=== PATIENT | female | born 1945 | race Caucasian/White ===

== ENCOUNTER 2016-11-25 17:45 | Day surgery (SDC) | payer MEDICARE, OTHER ==
[~2016-11-25] VITALS: Ht 157.5 cm; Wt 46.9 kg
[2016-11-25 17:45] VITALS: BP 126/67
[2016-11-25] MEDS ORDERED: ESCI10TA PO (18:17)
--- NOTE | 2016-11-25 18:23 | Consultation-Cardiology ---
HPI-Cardiology Cardiology Consultation Date of Consultation 11/25/16 Date of Admission Indication: chest pain HPI 71 years old lady with history of anxiety, has been in her usual state of health until this afternoon around 2 p.m. she started having chest pain described as pressure-like on the left side of her chest not radiating associated with shortness of breath and feeling fatigued and weak, no diaphoresis, no syncope or near syncopal episode, she waited for about 20-30 minutes then went to the emergency room while she was having active chest pain, EKG did not show any acute changes, she was given sublingual nitroglycerin with appropriate improvement of her chest pain, currently laying down in bed comfortably, denied any similar episodes in the past. Expressed that she felt like belching but she was unable to belch and did not feel better without them. She denied any syncope or near syncopal episode, denied any pedal edema or claudications. No fever or chills. No cough or phlegm. Home Medications & Allergies Allergies: Coded Allergies: No Known Drug Allergies (Unverified , 11/25/16) Home Medication List Reviewed: Yes [id number] Hx Patient Social History Employed/Student: retired Alcohol Use: Denies Use Smoking Status: Never a Smoker Past Medical History anxiety Family Medical History Family History: 19 MOTHER Diabetes mellitus G8 BROTHER Myocardial infarction G8 SISTER FH: breast cancer FH: pancreatic cancer Constitutional: see HPI, No chills, No diaphoresis, No dizziness, No fever, No malaise, weakness, No weight gain, No weight loss, No other EENTM: no symptoms reported, see HPI Respiratory: see HPI, No cough, No dyspnea on exertion, No hemoptysis, No orthopnea, No phlegm, short of breath, No stridor, No wheezing, No other Cardiovascular: see HPI, chest pain, No edema, No Hx of Intervention, No palpitations, No syncope, No vascular heart diseas, No other Gastrointestinal: no symptoms reported, see HPI Genitourinary: no symptoms reported, see HPI, decreased output Musculoskeletal: no symptoms reported, see HPI Skin: no symptoms reported, see HPI Psychiatric/Neurological: No Symptoms Reported, See HPI Reviewed Test Results Reviewed Test Results Lab lab results from [facility] were normal except for potassium level of 3.5 Physical Exam Vital Signs Vital Sign - Last 12Hours 11/25/16 17:45 Temp 98.7 Pulse 64 Resp 16 B/P (MAP) 126/67 Pulse Ox 100 O2 Delivery Room Air Capillary Refill : General Appearance: No Apparent Distress, WD/WN Eyes: Bilateral Eye EOMI, Bilateral Eye Normal Inspection, Bilateral Eye PERRL HEENT: PERRL/EOMI, TMs Normal, Normal ENT Inspection, Pharynx Normal Neck: Full Range of Motion, Normal Inspection, Non Tender, Supple, Carotid Bruit Respiratory: Chest Non Tender, Lungs Clear, Normal Breath Sounds, No Accessory Muscle Use, No Respiratory Distress Cardiovascular: Regular Rate, Rhythm, No Edema, No Gallop, No JVD, No Murmur, Normal Peripheral Pulses Gastrointestinal: Normal Bowel Sounds, No Organomegaly, No Pulsatile Mass, Non Tender, Soft Back: Normal Inspection, No CVA Tenderness, No Vertebral Tenderness Extremity: Normal Capillary Refill, Normal Inspection, Normal Range of Motion, Non Tender, No Calf Tenderness, No Pedal Edema Neurologic/Psychiatric: Alert, Oriented x3, No Motor/Sensory Deficits, Normal Mood/Affect Skin: Normal Color, Warm/Dry Lymphatic: No Adenopathy A/P-Cardiology Admission Diagnosis chest pain Anxiety Family history of heart disease Assessment/Plan Chest pain nonspecific etiology, resembling angina, responded to nitroglycerin associated with shortness of breath. Currently feeling better, EKG is normal, I had a long discussion with her and her family, I will monitor her overnight, monitor EKG and cardiac enzymes in her symptom, consideration for cardiac catheterization in the morning versus planning for stress test on Sunday if cardiac enzymes were negative and she did not have any further episode of chest pain. Meanwhile, I will start her on aspirin and Pepcid in addition to therapeutic dose of Lovenox. Anxiety, has been on Lexapro. Family history of heart disease, brother of myocardial infarction in his mid 80s WILBERT LIMA MD November 25, 2016 18:23
[2016-11-25 18:28] LABS: BASOPHILS % (AUTO) 1 % (0-10); EOSINOPHILS # (AUTO) 0.1 10^3/uL (0.0-0.3); EOSINOPHILS % (AUTO) 2 % (0-10); LYMPHOCYTES # (AUTO) 1.3 X 10^3 (1.0-4.0); LYMPHOCYTES % (AUTO) 25 % (12-44); MEAN CORPUSCULAR HEMOGLOBIN 30 PG (25-34); MEAN CORPUSCULAR HGB CONC 32 G/DL (32-36); MEAN CORPUSCULAR VOLUME 93 FL (80-99); MEAN PLATELET VOLUME 10.6 FL (7.4-10.4); MONOCYTES # (AUTO) 0.3 X 10^3 (0.0-1.0); MONOCYTES % (AUTO) 6 % (0-12); NEUTROPHILS # (AUTO) 3.6 X 10^3 (1.8-7.8); NEUTROPHILS % (AUTO) 67 % (42-75); PLATELET COUNT 206 10^3/uL (130-400); RED BLOOD COUNT 4.42 10^6/uL (4.35-5.85); RED CELL DISTRIBUTION WIDTH 13.6 % (10.0-14.5); WHITE BLOOD COUNT 5.4 10^3/uL (4.3-11.0)
[2016-11-25 18:44] LABS: PROTHROMBIN TIME PATIENT 12.8 SEC (12.2-14.7)
[2016-11-25 18:53] LABS: ALANINE AMINOTRANSFERASE 24 U/L (0-55); ALBUMIN 4.2 G/DL (3.2-4.5); ANION GAP 11 MMOL/L (5-14); ASPARTATE AMINO TRANSFERASE 30 U/L (5-34); BILIRUBIN,TOTAL 0.5 MG/DL (0.1-1.0); BLOOD UREA NITROGEN 15 MG/DL (7-18); BUN/CREATININE RATIO 22; CALCIUM 9.5 MG/DL (8.5-10.1); CARBON DIOXIDE 26 MMOL/L (21-32); CHLORIDE 106 MMOL/L (98-107); CREATININE SERUM 0.69 MG/DL (0.60-1.30); GFR ESTIMATED > 60; GLUCOSE 79 MG/DL (70-105); POTASSIUM 4.4 MMOL/L (3.6-5.0); SODIUM 143 MMOL/L (135-145); TOTAL PROTEIN 6.6 G/DL (6.4-8.2)
[2016-11-25] MEDS ORDERED: NS IV 1000 ML 1,000 ML ONE ×2 (19:42→23:41)
[2016-11-25 20:00] VITALS: BP 141/113
[2016-11-25] MEDS ORDERED: ENOXAPARIN 60 MG/0.6 ML (LOVENOX) SYR ONE (20:12)
[2016-11-25] MEDS ORDERED: NS IV 1000 ML 1,000 ML IV SCH (20:45)
[2016-11-25] MEDS ORDERED: ENOXAPARIN 60 MG/0.6 ML (LOVENOX) SYR SC ONE (20:45)
[2016-11-25] MEDS: FAMOTIDINE 20 MG (PEPCID) TABLET PO SCH (21:17)
[2016-11-25] MEDS ORDERED: meTOprolol 5 MG/5 ML (LOPRESSOR) VIAL ONE (23:15)
[2016-11-25] MEDS ORDERED: meTOprolol 5 MG/5 ML (LOPRESSOR) VIAL IV ONE (23:30)
[2016-11-25] MEDS ORDERED: LIDOCAINE 1% INJ 20 ML (XYLOCAINE) VIAL ONE (23:41)
[2016-11-25] MEDS ORDERED: HEParin (CATH LAB) 2,000 ML IV ONE (23:41)
[2016-11-25] MEDS ORDERED: MIDAZOLAM 5 MG/5 ML (VERSED) VIAL ONE (23:42)
[2016-11-25] MEDS ORDERED: fentaNYL INJECTION 100 MCG/2 ML AMP ONE (23:42)
[2016-11-25] MEDS ORDERED: NITROGLYCERIN DRIP 25 MG/D5W 250 ML IV ONE (23:42)
[2016-11-25] MEDS ORDERED: HEParin 1000 UNIT/ML (10ML VIAL) FOR BOLUS ONE (23:42)
[2016-11-26] VITALS (11 sets, daily range): BP systolic 96–120; BP diastolic 49–88
--- NOTE | 2016-11-26 00:02 | Cardiac Procedure Note-CS/ASA ---
Pre-Procedure Note Pre-Op Procedure Note H&P Reviewed The H&P was reviewed, patient examined and no changes noted. Date H&P Reviewed: November 26, 2016 Time H&P Reviewed: 00:02 Conscious Sedation Pre-Proced Time Reviewed: 00:02 ASA Class: 3 Airway Mallampati Classification: ([place] appropriate class) I. II. III, IV Lungs Heart ASA score ASA 1: a normal healthy patient ASA 2: a patient with a mild systemic disease (mid diabetes, controlled hypertension, obesity x ASA 3: a patient with a severe systemic disease that limits activity (angina , COPD, prior Myocardial infarction) ASA 4: a patient with an incapacitating disease that is a constant threat to life (CHF, renal failure) ASA 5: a moribund patient not expected to survive 24 hrs. (ruptured aneurysm) ASA 6: a declared brain patient whose organs are being harvested. For emergent operations, add the letter E after the classification Grade 3 Sedation Plan: Analgesia, Amnesia, Plan communicated to team members, Discussed options with patient/fam, Discussed risks with patient/fam Note The patient is an appropriate candidate to undergo the planned procedure, sedation, and anesthesia. The patient immediately re-assessed prior to indication. WILBERT LIMA MD November 26, 2016 00:02
[2016-11-26] MEDS ORDERED: NS IV 1000 ML 1,000 ML IV SCH (00:26)
[2016-11-26] MEDS ORDERED: PATIENT MAY USE OWN MEDS, ALL PO SCH (00:30)
[2016-11-26] MEDS ORDERED: meTOprolol TARTRATE 25 MG (LOPRESSOR) TABLET PO ONE (00:30)
[2016-11-26 03:55] LABS: MEAN PLATELET VOLUME 10.7 FL (7.4-10.4); RED CELL DISTRIBUTION WIDTH 13.5 % (10.0-14.5); WHITE BLOOD COUNT 4.8 10^3/uL (4.3-11.0)
[2016-11-26 04:24] LABS: ALANINE AMINOTRANSFERASE 20 U/L (0-55); ALBUMIN 3.5 G/DL (3.2-4.5); ANION GAP 7 MMOL/L (5-14); ASPARTATE AMINO TRANSFERASE 31 U/L (5-34); BILIRUBIN,TOTAL 0.4 MG/DL (0.1-1.0); BLOOD UREA NITROGEN 14 MG/DL (7-18); BUN/CREATININE RATIO 22; CALCIUM 8.5 MG/DL (8.5-10.1); CARBON DIOXIDE 25 MMOL/L (21-32); CHLORIDE 109 MMOL/L (98-107); CHOLESTEROL 171 MG/DL (< 200); CREATININE SERUM 0.64 MG/DL (0.60-1.30); DIRECT LDL 65 MG/DL (1-129); GFR ESTIMATED > 60; GLUCOSE 94 MG/DL (70-105); POTASSIUM 4.5 MMOL/L (3.6-5.0); SODIUM 141 MMOL/L (135-145); TOTAL PROTEIN 5.5 G/DL (6.4-8.2); TRIGLYCERIDES 56 MG/DL (<150); VLDL CHOLESTEROL 11 MG/DL (5-40)
[2016-11-26] MEDS ORDERED: ENOXAPARIN 100 MG/1 ML (LOVENOX) SYR SC SCH (08:00)
[2016-11-26] MEDS: FAMOTIDINE 20 MG (PEPCID) TABLET PO SCH (08:11)
[2016-11-26] MEDS ORDERED: ASPIRIN E.C. 81 MG (ECOTRIN) TAB PO SCH (09:00)
[2016-11-26] MEDS ORDERED: meTOprolol TARTRATE 25 MG (LOPRESSOR) TABLET PO SCH (09:00)
--- NOTE | 2016-11-26 09:29 | History & Physical-Hospitalist ---
HPI History of Present Illness: HPI/Chief Complaint this is a 71-year-old white female who is very very active and has been without any significant medical problems throughout her life. 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 This was associated with shortness of breath but no near syncope diaphoresis or radiation. She presented to the emergency room in [place] with similar complaints. She was given 3 nitroglycerin with resolution of the chest discomfort. she was transferred here for further evaluation by our police captain. The patient has remained pain free since admission however she had nonsustained V. tach last night and a bump in her troponin to 3.4. Dr. Lundberg performed a heart catheter, which did not require any intervention. The patient had been placed on a beta xander and aspirin. At the time my interview she feels great and would like to go home. During the time of my interview, she has no cardiac arrhythmias but a rare PAC and PVC. Source: patient, family Exam Limitations: no limitations Date Seen 11/26/16 Attending Physician Joel Isabel MD PCP Maxx Nolan DO Referring Physician Date of Admission November 25, 2016 at 17:51 Home Medications & Allergies Home Medications Reviewed patient Home Medication Reconciliation Form Allergies Allergies Coded Allergies No Known Drug Allergies (Unverified11/25/16) Past Otzcdfs-Ywwsyr-Kujlok Hx Patient Social History Marrital Status: Employed/Student: retired Alcohol Use: Denies Use Recreational Drug Use: No Smoking Status: Never a Smoker Physical Abuse Screen: No Sexual Abuse: No Recent Foreign Travel: No Contact w/other who traveled: No Recent Hopitalizations: No Recent Infectious Disease Expo: No Seasonal Allergies Seasonal Allergies: No Surgeries HX Surgeries: No Respiratory Hx Respiratory Disorders: No Cardiovascular Hx Cardiovascular Disorders: No Neurological Hx Neurological Disorders: No Genitourinary Hx Genitourinary Disorders: No Gastrointestinal Hx Gastrointestinal Disorders: No Musculoskeletal Hx Musculoskeletal Disorders: No Endocrine Hx Endocrine Disorders: No HEENT HX ENT Disorders: No Cancer Hx Cancer: No Psychosocial Hx Psychiatric Problems: Yes Behavioral Health Disorders: Anxiety, Depression Integumentary HX Skin/Integumentary Disorder: No Blood Transfusions Hx Blood Disorders: No Adverse Reaction to a Blood Tr: No Family Medical History Significant Family History: Heart Disease, Cancer Family Hx: Diabetes mellitus 19 MOTHER FH: breast cancer G8 SISTER FH: pancreatic cancer G8 SISTER Myocardial infarction G8 BROTHER Review of Systems Constitutional: see HPI EENTM: no symptoms reported Respiratory: no symptoms reported Cardiovascular: no symptoms reported, palpitations (rare at night) Gastrointestinal: no symptoms reported Genitourinary: no symptoms reported Musculoskeletal: no symptoms reported Skin: no symptoms reported Psychiatric/Neurological: Anxiety Physical Exam Physical Exam Vital Signs Vital Sign - Last 12Hours 11/25/16 11/25/16 17:45 23:32 Temp 98.7 Pulse 64 Resp 16 B/P (MAP) 126/67 Pulse Ox 100 O2 Delivery Room Air O2 Flow Rate 2.00 Capillary Refill : General Appearance: No Apparent Distress, WD/WN, Anxious Eyes: Bilateral Eye Normal Inspection HEENT: Normal ENT Inspection Neck: Full Range of Motion, Normal Inspection, Non Tender, Supple Respiratory: Chest Non Tender, Lungs Clear, Normal Breath Sounds, No Accessory Muscle Use, No Respiratory Distress Cardiovascular: Regular Rate, Rhythm, No Gallop, No Murmur, Normal Peripheral Pulses Gastrointestinal: Normal Bowel Sounds, No Organomegaly, No Pulsatile Mass, Non Tender, Soft Back: Normal Inspection, No CVA Tenderness, No Vertebral Tenderness Extremity: Normal Capillary Refill, Normal Range of Motion, No Calf Tenderness Neurologic/Psychiatric: Alert, Oriented x3, No Motor/Sensory Deficits, Normal Mood/Affect Skin: Normal Color, Warm/Dry Results Results/Procedures Lab Laboratory Tests 11/25/16 18:20 11/26/16 03:45 Assessment/Plan Admission Diagnosis 1. non-st segment elevation PR- with small vessel disease.-Status post heart catheter without intervention. 2. Nonsustained V. tach-resolving starting on a beta xander-resolving 3. History of anxiety-on Lexapro Plan per Dr. Lundberg-'s help appreciated Copy Copies To 1: MAXX NOLAN DO Clinical Quality Measures DVT/VTE Risk/Contraindication: Risk Factor Score Per Nursin RFS Level Per Nursing on Admit: 2=Moderate JOEL ISABEL MD November 26, 2016 09:29
--- NOTE | 2016-11-26 10:22 | Cardiology Progress Note ---
Subjective Subjective/Events-last exam patient is feeling well. Reporting improvement no further episodes of chest pain, no arrhythmia was noted after she started on beta blockers, groin is healing well. Review of Systems General: No Chills, No Night Sweats, No Fatigue, No Malaise, No Appetite, No Other HEENT: No Head Aches, No Visual Changes, No Eye Pain, No Ear Pain, No Dysphasia , No Sinus Congestion, No Post Nasal Drip, No Sore Throat, No Other Pulmonary: No Dyspnea, No Cough, No Pleuritic Chest Pain, No Other Cardiovascular: No: Chest Pain, Edema, Lt Headedness, Orthopnea, Other, Palpitations, Paroxysmal Noc. Dyspnea Objective-Cardiology Exam Last Set of Vital Signs Vital Signs 11/26/16 11/26/16 04:00 08:21 Temp 97.0 Pulse 76 Resp 14 B/P (MAP) 104/60 Pulse Ox 97 O2 Delivery Room Air O2 Flow Rate 2.00 Capillary Refill : I&O Bad tableGeneral: Alert, Oriented X3, Cooperative HEENT: Atraumatic, PERRLA Neck: Supple, No JVD, No Thyromegaly Lungs: Clear to Auscultation, Normal Air Movement Heart: Regular Rate, Normal S1, Normal S2, No Murmurs Abdomen: Normal Bowel Sounds, Soft, No Tenderness, No Hepatosplenomegaly, No Masses Extremities: No Clubbing, No Cyanosis, No Edema, Normal Pulses, No Tenderness/ Swelling Skin: No Rashes, No Breakdown, No Significant Lesion Neuro: Normal Gait, Normal Speech, Strength at 5/5 X4 Ext, Normal Tone, Sensation Intact Psych/Mental Status: Mental Status NL, Mood NL Results Lab Laboratory Tests 11/25/16 18:20 11/26/16 03:45 A/P-Cardiology Admission Diagnosis chest pain Anxiety Family history of heart disease Assessment/Plan Chest pain nonspecific etiology, resembling angina, heart catheterization showed occlusion of small septal branch not amendable to intervention, medical therapy is recommended Coronary artery disease, cardiac catheterization was carried out yesterday showing occlusion of a small septal branch otherwise small vessel disease. Patient will be starting on aspirin and beta blockers. Frequent PVCs, ventricular bigeminy, short run of nonsustained ventricular tachycardia noted last night on telemetry, emergency cardiac catheterization was carried out, started on low-dose beta blockers and since then no further arrhythmia was noted. Continue on beta blockers and monitor as an outpatient Lipid profile showed LDL of 65, there is no need to initiate statin Anxiety, has been on Lexapro. Family history of heart disease, brother of myocardial infarction in his mid 80s Clinical Quality Measures DVT/VTE Risk/Contraindication: Risk Factor Score Per Nursin RFS Level Per Nursing on Admit: 2=Moderate WILBERT LIMA MD November 26, 2016 10:22
[2016-11-26] MEDS ORDERED: METO-333 PO (10:24)
[2016-11-26] MEDS ORDERED: ASPI-983 PO (10:24)
--- NOTE | 2016-11-26 10:27 | Discharge Inst-Post CATH ---
Discharge Inst-CATH Post Cardiac Cath D/C Inst Follow Up/Plan Appointment with Dr Lundberg's office in 2 weeks CARDIAC CATH DISCHARGE INSTRUCTIONS *Hold Metformin for 48 hours post heart cath. ACTIVITY * Go Home directly and rest. * Limit activity of the leg (or wrist if it was used) for 7 days including aerobics, swimming, jogging, bicycling, etc. * Restrict stair-climbing for 7 days if possible, if not, climb up with your non -cath leg, then bring together on the same step. * Avoid lifting, pushing, pulling or excessive movement of the affected extremity for 7 days. * Customary sexual activity may be resumed after 2 days-use caution not to use a position that strains or causes pain to the affected extremity. * No driving for 24 hours. * NO SMOKING. * Avoid straining for bowel movements for 7 days. * Gentle walking on level ground is allowed. * Returning to work will depend on the type of procedure and the results. Your doctor will discuss this with you. CALL YOUR DOCTOR FOR ANY OF THE FOLLOWING: *If bleeding from the puncture site occurs- Apply gentle pressure to site with clean cloth and call your doctor or EMS. * If a knot or lump forms under the skin, increases in size, or causes pain. * If bruising appears to be worsening or moving further down your leg instead of disappearing. * Temperature above 101 F. CARE OF YOUR GROIN INCISION; * Bruising or purple discoloration of the skin near the puncture site is common. * You may shower only, no bathtub bathing for 5 days. Be careful to avoid slipping as your leg may feel stiff. * If a closure device was used on your femoral artery, please see the attached guide regarding care of the device and your leg. * REMOVE the dressing from your groin the next day after your procedure in the shower. CARE OF YOUR WRIST INCISION; * Bruising or purple discoloration of the skin near the puncture site is common. * You may shower. * DO NOT submerge wrist. * Remove dressing in 24 hours. WILBERT LUNDBERG MD November 26, 2016 10:27
[2016-11-26] MEDS ORDERED: NITR0.4T SL (10:28)
--- NOTE | 2016-11-26 10:28 | Clinic Account Progress/Dx ---
Clinic Account Progress/Dx DIAGNOSIS: Diagnosis anterior chest wall. Coronary artery disease Nonsustained ventricular tachycardia Anxiety WILBERT LIMA MD November 26, 2016 10:28
[2016-11-26] MEDS ORDERED: NITROGLYCERIN SUBLINGUAL 0.4 MG TAB (NITROSTAT) SL PRN (10:30)
--- NOTE | 2016-11-26 23:24 | CARDIAC CATHETERIZATION ---
DATE OF SERVICE: 11/26/2016 CARDIAC CATHETERIZATION REPORT BRIEF HISTORY: The patient is a 71-year-old lady admitted with acute chest pain, had elevated troponin, then she started having frequent premature ventricular contractions, ventricular bigeminy, and short runs of nonsustained ventricular tachycardia. I decided to proceed with emergency cardiac catheterization. PROCEDURE NOTE: After calling the farm laborer team, procedure was explained at length to the patient and her family. All questions were answered. The patient signed the consent. Then, she was brought to the cardiac catheterization laboratory. Local anesthesia applied, conscious sedation achieved using Versed and fentanyl. A 6-[place] sheath was placed in the right femoral artery. Combination of right and left Ajith catheter was used to access the right and left coronary system. Multiple views were obtained. Pigtail catheter was advanced to the left ventricular cavity. Left ventriculogram was done. Pullback LV to aorta was done. The aortic arch angiogram was done. At the end of the procedure, sheath was removed, Mynx device deployed, hemostasis achieved, and manual pressure was applied. TOTAL CONTRAST USED: 74 mL. TOTAL RADIATION DOSE: 82 mGy. FINDINGS: HEMODYNAMICS: LV pressure 112/14, end diastolic pressure of 14, aortic pressure 128/64, mean of 89. No significant gradient across the aortic valve. ANATOMY: 1. The left main coronary artery is fairly short with no obstructive disease. 2. Left anterior descending artery is small in size, tapered down after its trifurcation in the midportion in to smaller artery down to the apex. There is a very small septal branch that is occluded distally getting filled by collaterals. 3. Left circumflex is moderate in size with no obstructive disease. 4. Right coronary artery is moderate in size, no obstructive disease. 5. Left ventriculogram was done in the right anterior oblique position. The left ventricle is normal in size with normal contractility. Estimated ejection fraction is 50%. 6. Aortic arch angiogram appeared to be normal in size, origin of the subclavian artery. The left subclavian artery, left carotid artery, and right innominate artery appeared normal. IN CONCLUSION: 1. Small vessel disease including mid to distal small septal branch that has appeared to be occluded and getting filled by collaterals. The artery is less than 0.5 mL in diameter; otherwise, small coronary artery disease. The LAD tapered down into very small artery at the mid and distal portion. 2. Normal left ventricular size with normal contractility. Estimated ejection fraction 50%. Normal left ventricular end diastolic pressure. 3. Normal aortic arch and great neck vessels. DISCUSSION AND RECOMMENDATION: The patient's elevated troponin is probably due to the occluded septal branch in addition to her ventricular irritability. I will start her on low dose beta xander due to her borderline hypotension and try to titrate it up. In addition, I will continue on aspirin and will consider adding nitroglycerin for chest pain. I will evaluate lipid profile. Job ID: [id number] DocumentID: [id number] Dictated Date: 11/26/2016 00:31:50 [employer] Installer Date: 11/26/2016 13:10:43 Dictated By: WILBERT LIMA MD
== END 2016-11-26 11:05 | disposition home or self-care (01) ==
LOC: CATH 17:45 → ICU 17:45 → UNDOADMIN 17:51 → ICU 17:51 → UNDODISIN 11-26 11:05 → CATH 11-26 11:05
PROVIDERS: ATTEND Internal Medicine
PROC: 4A023N7 Measurement of Cardiac Sampling and Pressure, Left Heart, Percutaneous Approach (ICD-10-PCS; principal; 2016-11-26)
PROC: B2151ZZ Fluoroscopy of Left Heart using Low Osmolar Contrast (ICD-10-PCS; 2016-11-26)
PROC: B2111ZZ Fluoroscopy of Multiple Coronary Arteries using Low Osmolar Contrast (ICD-10-PCS; 2016-11-26)
PROC: B3101ZZ Fluoroscopy of Thoracic Aorta using Low Osmolar Contrast (ICD-10-PCS; 2016-11-26)
DX: I25.10 Atherosclerotic heart disease of native coronary artery without angina pectoris (principal); I47.2 Ventricular tachycardia; I49.3 Ventricular premature depolarization; F41.9 Anxiety disorder, unspecified; R07.89 Other chest pain; Z82.49 Family history of ischemic heart disease and other diseases of the circulatory system; Z79.899 Other long term (current) drug therapy
CPT/HCPCS: 36221; 36415; 80053; 80061; 84484; 85025; 85027; 85610; 85730; 93005; 93458; 99211; G0378

== ENCOUNTER 2016-12-25 14:06 | Outpatient (RCR) | payer MEDICARE, OTHER ==
[~2016-12-25 14:06] MED LIST: ASPI-983 PO; ESCI10TA PO; METO-333 PO; NITR0.4T SL
[2016-12-30] MEDS ORDERED: ALPR0.25 PO (18:05)
== END 2017-03-25 | disposition home or self-care (01) ==
LOC: CARD 14:06
PROVIDERS: ATTEND Physician Assistant
DX: R07.89 Other chest pain (principal); R77.8 Other specified abnormalities of plasma proteins; I47.2 Ventricular tachycardia; I49.3 Ventricular premature depolarization
CPT/HCPCS: 93225; 93226

== ENCOUNTER 2016-12-30 16:05 | Emergency (ER) | payer MEDICARE, OTHER ==
[~2016-12-30] VITALS: Ht 160 cm; Wt 47.6 kg
[2016-12-30] MEDS ORDERED: morphine INJ 10 MG/ML 1ML (SYR OR VIAL) ONE (16:10)
[2016-12-30] MEDS ORDERED: morphine INJ 10 MG/ML 1ML (SYR OR VIAL) IV STA (16:14)
[2016-12-30] MEDS ORDERED: ONDANSETRON 4 MG/2 ML (SDV) Z0FRAN ONE (16:16)
--- NOTE | 2016-12-30 16:23 | ED Chest Pain ---
General Chief Complaint: Chest Pain Stated Complaint: CHEST PAIN History of Present Illness Time seen by provider: 16:10 Initial Comments Evaluation for chest pain. Patient had a cardiac catheterization early November 2016 Dr. Lundberg (report reviewed 50% ejection fraction). Her son reports that she became winded and comfortable after walking at [employer] yesterday evening, she took 3 nitroglycerin between 7 and 8 PM yesterday evening. He told her family that it relieved her symptoms, however she is now stating that it did not completely resolve her symptoms. She did well through the nightand this morning, taking her normal morning medications including a baby aspirin. She Began having chest pain this afternoon. She used nitroglycerin 3 prior to arrival, with no resolution of her symptoms. she currently reports the pain is not the same as when she was having heart problems in early November, she feels as though it's more pressure and anxiety related. She reports when she takes a nitroglycerin and make sure her anxious. She is currently rating her chest pain at 4/10. she did wear a Holter for 3 days earlier this week. The results have not been given to her yet. Timing/Duration: 1 hour Severity/Quality: mild (for over 10) Location: substernal Radiation: no radiation Activities at Onset: none Prior CP/Workup: angina, cardiac cath ASA po STATISTICAL TECHNICIAN: Yes (this morning) NTG SL STATISTICAL TECHNICIAN: Yes (3) Associated Symptoms: denies symptoms, No abdominal pain, No back pain, No diaphoresis, No dizziness, No edema, No fatigue, No fever/chills, No headache, No heartburn, No nausea/vomiting, No rash, No shortness of breath, No swelling/ lump in chest, No syncope, No weakness Allergies and Home Medications Allergies Coded Allergies: No Known Drug Allergies (Unverified , 11/25/16) Home Medications Alprazolam 0.25 Mg Tablet, 0.25 MG PO Q8H PRN for ANXIETY, #12 Ref 0 Prescribed by: DIVYA OVALLES on 12/30/16 1805 Aspirin 81 Mg Tablet.dr, 81 MG PO DAILY, #100 Ref 3 Prescribed by: WILBERT LUNDBERG on 11/26/16 1024 Escitalopram Oxalate 10 Mg Tablet, 10 MG PO DAILY, (Reported) Metoprolol Tartrate 25 Mg Tablet, 12.5 MG PO BID, #60 Ref 3 Prescribed by: WILBERT LUNDBERG on 11/26/16 1024 Nitroglycerin 0.4 Mg Tab.subl, 0.4 MG SL Q5M PRN for CHEST PAIN, #30 Ref 2 Prescribed by: WILBERT LUNDBERG on 11/26/16 1028 Review of Systems Constitutional: no symptoms reported, see HPI EENTM: No Symptoms Reported, See HPI Respiratory: No Symptoms Reported, See HPI Cardiovascular: See HPI, Chest Pain, Palpitations Gastrointestinal: No Symptoms Reported, See HPI Genitourinary: No Symptoms Reported, See HPI Musculoskeletal: no symptoms reported, see HPI Skin: no symptoms reported, see HPI Psychiatric/Neurological: See HPI, Anxiety Endocrine: No Symptoms Reported, See HPI Hematologic/Lymphatic: No Symptoms Reported, See HPI All Other Systems Reviewed Negative Unless Noted: Yes Past Lkyykvz-Xxpyfm-Rgzmsu Hx Patient Social History Alcohol Use: Denies Use Recreational Drug Use: No Smoking Status: Never a Smoker Recent Foreign Travel: No Contact w/Someone Who Travel: No Recent Hopitalizations: No Seasonal Allergies Seasonal Allergies: No Surgeries HX Surgeries: No Respiratory Hx Respiratory Disorders: No Cardiovascular Hx Cardiac Disorders: No Neurological Hx Neurological Disorders: No Genitourinary Hx Genitourinary Disorders: No Gastrointestinal Hx Gastrointestinal Disorders: No Musculoskeletal Hx Musculoskeletal Disorders: No Endocrine Hx Endocrine Disorders: No HEENT HX ENT Disorders: No Cancer Hx Cancer: No Psychosocial Hx Psychiatric Problems: Yes Behavioral Health Disorders: Anxiety, Depression Integumentary HX Skin/Integumentary Disorder: No Blood Transfusions Hx Blood Disorders: No Adverse Reaction to a Blood Tr: No Reviewed Nursing Assessment Reviewed/Agree w Nursing PMH: Yes Family Medical History Significant Family History: Heart Disease, Cancer Family Medial History: Diabetes mellitus 19 MOTHER FH: breast cancer G8 SISTER FH: pancreatic cancer G8 SISTER Myocardial infarction G8 BROTHER Physical Exam Vital Signs Vital Sign - Last 12Hours 12/30/16 16:05 Temp 98.0 Pulse 58 Resp 18 B/P (MAP) 134/74 Pulse Ox 100 O2 Delivery Nasal Cannula O2 Flow Rate 2.00 Capillary Refill : General Appearance: No Apparent Distress, WD/WN HEENT: PERRL/EOMI, TMs Normal, Normal ENT Inspection, Pharynx Normal Neck: Full Range of Motion, Normal Inspection, Non Tender, Supple Respiratory: Chest Non Tender, Lungs Clear, Normal Breath Sounds Cardiovascular: Regular Rate, Rhythm, No Edema, No JVD, No Murmur, Normal Peripheral Pulses (2+) Gastrointestinal: Normal Bowel Sounds, No Organomegaly, No Pulsatile Mass, Non Tender, Soft Extremity: Normal Capillary Refill, Normal Inspection, Normal Range of Motion, Non Tender, No Calf Tenderness, No Pedal Edema Neurologic/Psychiatric: Alert, Oriented x3, No Motor/Sensory Deficits, Normal Mood/Affect Skin: Normal Color, Warm/Dry, No Cyanosis, No Diaphoresis, No Rash Lymphatic: No Adenopathy Progress/Results/Core Measures Results/Orders Lab Results Laboratory Tests Test 12/30/16 16:11 Range/Units White Blood Count 5.3 4.3-11.0 10^3/uL Red Blood Count 4.28 L 4.35-5.85 10^6/uL Hemoglobin 12.8 11.5-16.0 G/DL Hematocrit 40 35-52 % Mean Corpuscular Volume 94 80-99 FL Mean Corpuscular Hemoglobin 30 25-34 PG Mean Corpuscular Hemoglobin Concent 32 32-36 G/DL Red Cell Distribution Width 13.4 10.0-14.5 % Platelet Count 213 130-400 10^3/uL Mean Platelet Volume 11.4 H 7.4-10.4 FL Neutrophils (%) (Auto) 53 42-75 % Lymphocytes (%) (Auto) 34 12-44 % Monocytes (%) (Auto) 9 0-12 % Eosinophils (%) (Auto) 3 0-10 % Basophils (%) (Auto) 1 0-10 % Neutrophils # (Auto) 2.8 1.8-7.8 X 10^3 Lymphocytes # (Auto) 1.8 1.0-4.0 X 10^3 Monocytes # (Auto) 0.5 0.0-1.0 X 10^3 Eosinophils # (Auto) 0.1 0.0-0.3 10^3/uL Basophils # (Auto) 0.0 0.0-0.1 10^3/uL Prothrombin Time 12.6 12.2-14.7 SEC INR Comment 1.0 0.8-1.4 Activated Partial Thromboplast Time 26 24-35 SEC Sodium Level 141 135-145 MMOL/L Potassium Level 4.0 3.6-5.0 MMOL/L Chloride Level 107 98-107 MMOL/L Carbon Dioxide Level 26 21-32 MMOL/L Anion Gap 8 5-14 MMOL/L Blood Urea Nitrogen 14 7-18 MG/DL Creatinine 0.68 0.60-1.30 MG/DL Estimat Glomerular Filtration Rate > 60 BUN/Creatinine Ratio 21 Glucose Level 87 70-105 MG/DL Calcium Level 9.3 8.5-10.1 MG/DL Magnesium Level 2.0 1.8-2.4 MG/DL Total Bilirubin 0.4 0.1-1.0 MG/DL Aspartate Amino Transf (AST/SGOT) 23 5-34 U/L Alanine Aminotransferase (ALT/SGPT) 20 0-55 U/L Alkaline Phosphatase 64 40-136 U/L Myoglobin 28.8 10.0-92.0 NG/ML Troponin I < 0.30 <0.30 NG/ML Total Protein 6.5 6.4-8.2 G/DL Albumin 4.1 3.2-4.5 G/DL My Orders Orders - DIVYA OVALLES APRN Cbc With Automated Diff (12/30/16 16:14) Magnesium (12/30/16 16:14) Chest 1 View, Ap/Pa Only (12/30/16 16:14) Ekg Tracing (12/30/16 16:14) Cardiac Profile 1 (12/30/16 16:14) Comprehensive Metabolic Panel (12/30/16 16:14) Myoglobin Serum (12/30/16 16:14) Protime With Inr (12/30/16 16:14) Partial Thromboplastin Time (12/30/16 16:14) O2 (12/30/16 16:14) Monitor-Rhythm Ecg Trace Only (12/30/16 16:14) Morphine Injection (Morphine Injection (12/30/16 16:14) Saline Lock/Iv-Start (12/30/16 16:14) Ondansetron Injection (Zofran Injectio (12/30/16 16:16) Alprazolam Tablet (Xanax Tablet) (12/30/16 18:15) Medications Given in ED Current Medications Medications Dose Ordered Sig/Khoi Route Start Time Stop Time Status Last Admin Dose Admin Alprazolam 0.125 mg ONCE ONCE PO 12/30/16 18:15 12/30/16 18:17 DC 12/30/16 18:21 0.125 MG Ondansetron HCl 4 mg STK-MED ONCE .ROUTE 12/30/16 16:16 12/30/16 16:20 DC 12/30/16 16:20 4 MG Vital Signs/I&O Vital Sign - Last 12Hours 12/30/16 12/30/16 12/30/16 12/30/16 16:05 16:05 16:15 18:26 Temp 98.0 Pulse 58 65 Resp 18 18 B/P (MAP) 134/74 Pulse Ox 100 98 O2 Delivery Nasal Cannula Nasal Cannula Nasal Cannula O2 Flow Rate 2.00 Progress Note : Time: 16:10 Progress Note Initial evaluation completed cardiac workup started. Morphine 2 mg IV. EKG shows normal sinus rhythm with no concerns. Reviewed EKG with Dr. Dutton, agreed with this assessment plan. 1625 patient reports resolution of her chest pain after getting the morphine however she became nauseated, Zofran 4 mg IV. 1645 patient reports no chest pain at the present time, and that her nausea has improved. Awaiting labs at this time. 1655 all labs are essentially normal. Discussed these results with the patient and her family had a longer discussion with them about anxiety. They report that she is extremely anxious since having a heart catheterization in November. [address] Lundberg by phone, reviewed labs and EKG. He agreed with plan of care to return home and return to emergency department if pain returns. 1745 discussed the plan with the patient and her family, they agree with this treatment plan. She would like to try a Xanax 0.25 mg at this time, she reports that she is mildly anxious at this time. ECG Initial ECG Impression Date: Dec 30, 2016 Initial ECG Impression Time: 16:09 Initial ECG Rate: 58 Initial ECG Rhythm: Normal Sinus Initial ECG Intervals: Normal Initial ECG Intervals OK 152, QRS 84, QT 432, QTc 425. Baden P 77, QRS 0, T 17. Initial ECG Impression: Normal Initial ECG Comparisson: Unchanged Comment Reviewed EKG with Dr. Dutton who agreed with interpretation. Diagnostic Imaging Diagonstic Imaging: Xray Plain Films/CT/US/NM/MRI: chest Comments NAME: [facility]ICHARDSON [facility] REC#: [id number] PT STATUS: REG ER : 1945 PHYSICIAN: DIVYA OVALLES ADMIT DATE: 12/30/16/ER Signed Date of Exam: 12/30/16 CHEST 1 VIEW, AP/PA ONLY INDICATION: Chest pain. EXAMINATION: Single view of the chest was obtained. COMPARISON: No prior examinations are available for comparison. FINDINGS: There is cardiomegaly. Lungs are clear. There is no pleural effusion or pneumothorax. The mediastinum is unremarkable. IMPRESSION: 1. No acute cardiopulmonary abnormality. 2. Cardiomegaly. Dictated by: Dictated on workstation # [id number] Dict: 12/30/16 1624 Trans: 12/30/16 1641 Interpreted by: DIMPLE SANCHEZ Electronically signed by: DIMPLE SANCHEZ 12/30/16 164 Reviewed: Reviewed by Me Departure Impression Impression: Primary Impression: Chest pain Qualified Codes: R07.89 - Other chest pain Additional Impression: Anxiety Disposition: 01 HOME, SELF-CARE Condition: Improved Departure-Patient Inst. Decision time for Depature: 17:45 Referrals: TELLY LEONARD DO (PCP/Family) Primary Care Physician Patient Instructions: Chest Pain (DC) Add. Discharge Instructions: Continue taking aspirin and using nitroglycerin as needed for chest pain. Call Dr. Lundberg's office on Sunday for follow-up appointment. Return to emergency department for chest pain not relieved with nitroglycerin. Limit activity especially outside in the heat. Drink extra water. All discharge instructions reviewed with patient and/or family. Voiced understanding. Scripts Alprazolam (Xanax) 0.25 Mg Tablet 0.25 MG PO Q8H Y for ANXIETY, #12 TAB 0 Refills Prov: DIVYA OVALLES 12/30/16 Copy Copies To 1: TELLY LEONARD DO Copies To 2: WILBERT LUNDBERG MD, AMY ARNP Dec 30, 2016 16:23
--- NOTE | 2016-12-30 16:36 | Diagnostic Imaging Report ---
INDICATION: Chest pain. EXAMINATION: Single view of the chest was obtained. COMPARISON: No prior examinations are available for comparison. FINDINGS: There is cardiomegaly. Lungs are clear. There is no pleural effusion or pneumothorax. The mediastinum is unremarkable. IMPRESSION: 1. No acute cardiopulmonary abnormality. 2. Cardiomegaly. Dictated by: Dictated on workstation # [id number]
[2016-12-30 16:47] LABS: ALANINE AMINOTRANSFERASE 20 U/L (0-55); ALBUMIN 4.1 G/DL (3.2-4.5); ANION GAP 8 MMOL/L (5-14); ASPARTATE AMINO TRANSFERASE 23 U/L (5-34); BILIRUBIN,TOTAL 0.4 MG/DL (0.1-1.0); BLOOD UREA NITROGEN 14 MG/DL (7-18); BUN/CREATININE RATIO 21; CALCIUM 9.3 MG/DL (8.5-10.1); CARBON DIOXIDE 26 MMOL/L (21-32); CHLORIDE 107 MMOL/L (98-107); CREATININE SERUM 0.68 MG/DL (0.60-1.30); GFR ESTIMATED > 60; GLUCOSE 87 MG/DL (70-105); SODIUM 141 MMOL/L (135-145); TOTAL PROTEIN 6.5 G/DL (6.4-8.2)
[2016-12-30 16:56] LABS: MYOGLOBIN SERUM 28.8 NG/ML (10.0-92.0)
[2016-12-30 17:00] LABS: PROTHROMBIN TIME PATIENT 12.6 SEC (12.2-14.7)
[2016-12-30 17:16] LABS: BASOPHILS % (AUTO) 1 % (0-10); EOSINOPHILS # (AUTO) 0.1 10^3/uL (0.0-0.3); EOSINOPHILS % (AUTO) 3 % (0-10); LYMPHOCYTES # (AUTO) 1.8 X 10^3 (1.0-4.0); LYMPHOCYTES % (AUTO) 34 % (12-44); MEAN CORPUSCULAR HEMOGLOBIN 30 PG (25-34); MEAN CORPUSCULAR HGB CONC 32 G/DL (32-36); MEAN CORPUSCULAR VOLUME 94 FL (80-99); MEAN PLATELET VOLUME 11.4 FL (7.4-10.4); MONOCYTES # (AUTO) 0.5 X 10^3 (0.0-1.0); MONOCYTES % (AUTO) 9 % (0-12); NEUTROPHILS # (AUTO) 2.8 X 10^3 (1.8-7.8); NEUTROPHILS % (AUTO) 53 % (42-75); PLATELET COUNT 213 10^3/uL (130-400); RED BLOOD COUNT 4.28 10^6/uL (4.35-5.85); RED CELL DISTRIBUTION WIDTH 13.4 % (10.0-14.5); WHITE BLOOD COUNT 5.3 10^3/uL (4.3-11.0)
[2016-12-30] MEDS ORDERED: ALPR0.25 PO (18:05)
[2016-12-30] MEDS ORDERED: ALPRAZolam 0.25 MG (XANAX) TAB PO ONE (18:15)
[2016-12-30 18:26] VITALS: BP 131/64
== END 2016-12-30 18:26 | disposition home or self-care (01) ==
LOC: EDUNIT# 16:05 → ER 16:07
DX: R07.9 Chest pain, unspecified (principal); F41.9 Anxiety disorder, unspecified; F32.9 Major depressive disorder, single episode, unspecified; Z79.82 Long term (current) use of aspirin
CPT/HCPCS: 36415; 71010; 80053; 83735; 83874; 84484; 85025; 85610; 85730; 93005; 93041

== ENCOUNTER → 2018-04-30 | Outpatient (CLI) | payer MEDICARE, OTHER ==
[~2018-04-30] MED LIST changes: +ALPR0.25 PO
== END ==
LOC: CARD 10:46
PROVIDERS: ATTEND Physician Assistant
DX: I10 Essential (primary) hypertension (principal); I25.10 Atherosclerotic heart disease of native coronary artery without angina pectoris; Z82.49 Family history of ischemic heart disease and other diseases of the circulatory system; I47.2 Ventricular tachycardia; I49.3 Ventricular premature depolarization; I08.3 Combined rheumatic disorders of mitral, aortic and tricuspid valves
CPT/HCPCS: 93306

== ENCOUNTER 2018-10-07 08:58 | Outpatient (CLI) | payer MEDICARE, OTHER ==
[~2018-10-07] VITALS: Ht 160 cm; Wt 47.8 kg
[2018-10-07] MEDS ORDERED: LACT1CAP40 PO (15:12)
[2018-10-07] MEDS ORDERED: PSYL1CAP3 PO (15:12)
[2018-10-07] MEDS ORDERED: RANO500T3 PO (15:12)
[2018-10-07] MEDS ORDERED: METO-333 PO (15:12)
[2018-10-07] MEDS ORDERED: OMG1KC PO (15:12)
[2018-10-07] MEDS ORDERED: SERT25TA5 PO (15:12)
[2018-10-07] MEDS ORDERED: MULT-351 PO (15:12)
[2018-10-07] MEDS ORDERED: CETI10TA17 PO (15:12)
== END 2018-10-07 15:32 | disposition home or self-care (01) ==
LOC: PREOP 08:58
PROVIDERS: ATTEND Otolaryngology Otolaryngology/Facial Plastic Surgery
DX: Z01.818 Encounter for other preprocedural examination (principal)

== ENCOUNTER 2018-10-10 06:29 | Day surgery (SDC) | payer MEDICARE, OTHER ==
[~2018-10-10] VITALS: Ht 160 cm; Wt 47.8 kg
[~2018-10-10 06:29] MED LIST changes: +CETI10TA17 PO; +LACT1CAP40 PO; +MULT-351 PO; +OMG1KC PO; +PSYL1CAP3 PO; +RANO500T3 PO; +SERT25TA5 PO
[2018-10-10] MEDS ORDERED: LACTATED RINGERS 1,000 ML IV PRN (06:40)
[2018-10-10 07:02] LABS: BASOPHILS % (AUTO) 1 % (0-10); EOSINOPHILS # (AUTO) 0.1 10^3/uL (0.0-0.3); EOSINOPHILS % (AUTO) 2 % (0-10); HEMATOCRIT 42 % (35-52); HEMOGLOBIN 13.6 G/DL (11.5-16.0); LYMPHOCYTES # (AUTO) 1.2 X 10^3 (1.0-4.0); LYMPHOCYTES % (AUTO) 28 % (12-44); MEAN CORPUSCULAR HEMOGLOBIN 30 PG (25-34); MEAN CORPUSCULAR HGB CONC 32 G/DL (32-36); MEAN CORPUSCULAR VOLUME 93 FL (80-99); MEAN PLATELET VOLUME 10.5 FL (7.4-10.4); MONOCYTES # (AUTO) 0.4 X 10^3 (0.0-1.0); MONOCYTES % (AUTO) 10 % (0-12); NEUTROPHILS # (AUTO) 2.6 X 10^3 (1.8-7.8); NEUTROPHILS % (AUTO) 60 % (42-75); PLATELET COUNT 224 10^3/uL (130-400); WHITE BLOOD COUNT 4.3 10^3/uL (4.3-11.0)
--- NOTE | 2018-10-10 07:04 | Progress Note-Pre Operative ---
Pre-Operative Progress Note H&P Reviewed The H&P was reviewed, patient examined and no changes noted. Date Seen by Provider: Oct 10, 2018 Time Seen by Provider: 07:00 Date H&P Reviewed: Oct 10, 2018 Time H&P Reviewed: 07:00 Pre-Operative Diagnosis: Right SHANE JONELLE TRENT MD Oct 10, 2018 07:04
[2018-10-10 07:10] VITALS: BP 132/69
[2018-10-10 07:18] LABS: BUN/CREATININE RATIO 22; CALCIUM 9.4 MG/DL (8.5-10.1); CARBON DIOXIDE 24 MMOL/L (21-32); CHLORIDE 108 MMOL/L (98-107); CREATININE SERUM 0.78 MG/DL (0.60-1.30); GFR ESTIMATED > 60; GLUCOSE 90 MG/DL (70-105); POTASSIUM 4.3 MMOL/L (3.6-5.0); SODIUM 144 MMOL/L (135-145)
[2018-10-10] MEDS ORDERED: proPOfol 200 MG/20 ML (DIPRIVAN) VIAL IV ONE (07:56)
[2018-10-10] MEDS ORDERED: SEVOFLURANE (ULTANE) 15 ML INHAL SOLN ONE (07:56)
[2018-10-10] MEDS ORDERED: LIDOCAINE PF 2% 5 ML (XYLOCAINE) VIAL ONE (07:56)
[2018-10-10] MEDS ORDERED: DEXAMETHASONE 10 MG/ML (DECADRON) 1 ML VIAL ONE (07:57)
[2018-10-10] MEDS ORDERED: fentaNYL INJECTION 100 MCG/2 ML AMP ONE (07:57)
[2018-10-10] MEDS ORDERED: MIDAZOLAM 2 MG/2 ML (VERSED) VIAL ONE (07:57)
[2018-10-10] MEDS ORDERED: ONDANSETRON 4 MG/2 ML (SDV) Z0FRAN ONE (07:57)
--- NOTE | 2018-10-10 08:40 | Progress Note-Post Operative ---
Post-Operative Progess Note Surgeon (s)/Membership Sales Advisor (s) Surgeon JONELLE TRENT MD Membership Sales Advisor n/a Pre-Operative Diagnosis Right SHANE Post-Operative Diagnosis same Post-Op Procedure Note Date of Procedure: Oct 10, 2018 Name of Procedure Performed: Right Myringotomy with T-Tube Description & Findings Description and Findings: n/a Anesthesia Type mask Estimated Blood Loss minimal Packing none. Specimen(s) collected/removed none JONELLE TRENT MD Oct 10, 2018 08:40
[2018-10-10] MEDS ORDERED: APAP 325 MG/10.15 ML LIQ (TYLENOL) UDC PO PRN (08:45)
[2018-10-10] MEDS ORDERED: morphine INJ 10 MG/ML 1ML (SYR OR VIAL) IVP ONE (09:00)
[2018-10-10] MEDS ORDERED: ONDANSETRON 4 MG/2 ML (SDV) Z0FRAN IVP PRN (09:00)
[2018-10-10 09:25] VITALS: BP 137/69
[2018-10-10] MEDS ORDERED: GENT5DRO30 OP (09:39)
[2018-10-10 09:55] VITALS: BP 133/66
[2018-10-10 10:05] VITALS: BP 133/66
--- NOTE | 2018-10-10 14:14 | Anesthesia-General Post-Op ---
General Patient Condition Mental Status/LOC: Same as Preop Cardiovascular: Satisfactory Nausea/Vomiting: Absent Respiratory: Satisfactory Pain: Controlled Complications: Absent Post Op Complications Complications None Follow Up Care/Instructions Patient Instructions None needed. Anesthesia/Patient Condition Patient Condition Patient is doing well, no complaints, stable vital signs, no apparent adverse anesthesia problems. No complications reported per nursing. AL LARKIN CRNA Oct 10, 2018 14:14
== END 2018-10-10 10:05 | disposition home or self-care (01) ==
LOC: SDC 06:29
PROVIDERS: ATTEND Otolaryngology Otolaryngology/Facial Plastic Surgery
DX: H65.21 Chronic serous otitis media, right ear (principal); I25.119 Atherosclerotic heart disease of native coronary artery with unspecified angina pectoris; I10 Essential (primary) hypertension; F41.9 Anxiety disorder, unspecified; F32.9 Major depressive disorder, single episode, unspecified; Z86.73 Personal history of transient ischemic attack (TIA), and cerebral infarction without residual deficits; Z79.82 Long term (current) use of aspirin; Z79.899 Other long term (current) drug therapy
CPT/HCPCS: 36415; 80048; 85025; 87081; 93005

== ENCOUNTER → 2019-06-04 | Outpatient (CLI) | payer MEDICARE, OTHER ==
[~2019-06-04] VITALS: Ht 157 cm; Wt 48.0 kg
[~2019-06-04] MED LIST changes: +CATHETER FLUSH 10 ML SYR IV PRN; +GENT5DRO30 OP; +REGADENOSON 0.4 MG/5 ML SYR (LEXISCAN) IV ONE
--- NOTE | 2019-06-04 15:51 | STRESS TEST ---
DATE OF SERVICE: 06/04/2019 LEXISCAN MYOVIEW STRESS TEST REPORT REFERRING PHYSICIAN: Maxx Nolan DO Baseline heart rate is 63. Baseline blood pressure 164/83. Baseline EKG is sinus rhythm with occasional PVCs. In summary, the patient was injected with 10.58 mCi of technetium-99 Myoview and the resting images were obtained. Then, the patient received 0.4 mg of Lexiscan followed by 29.2 mCi of technetium-99 Myoview. Throughout the test, there were no EKG changes. The resting and stress images were reviewed and compared in the short axis, horizontal long axis, and vertical long axis views. Review of the images showed decreased uptake at the base of the inferior wall and inferoseptum with no significant reversibility. SSS is 4, SDS 1, TID value 1.11. On the gated images, the left ventricle appeared to be in normal size with normal contractility. Calculated ejection fraction 59%. CONCLUSION: 1. The patient tolerated Lexiscan well. 2. No significant ischemia or infarction on SPECT images. 3. Normal left ventricular size with normal contractility. Calculated ejection fraction 59%. Job ID: [id number] DocumentID: [id number] Dictated Date: 06/04/2019 15:43:14 Facility Designer Date: 06/04/2019 15:50:57 Dictated By: WILBERT LIMA MD
== END ==
LOC: CARD 10:54
PROVIDERS: ATTEND Internal Medicine Cardiovascular Disease
DX: I25.10 Atherosclerotic heart disease of native coronary artery without angina pectoris (principal); I10 Essential (primary) hypertension; E78.2 Mixed hyperlipidemia; I47.2 Ventricular tachycardia
CPT/HCPCS: 78452; 93017

== ENCOUNTER 2019-09-04 22:09 | Inpatient (IN) | payer MEDICARE, OTHER ==
[~2019-09-04] VITALS: Ht 157 cm; Wt 98.6 kg
[~2019-09-04 22:09] MED LIST changes: -CATHETER FLUSH 10 ML SYR IV PRN; -REGADENOSON 0.4 MG/5 ML SYR (LEXISCAN) IV ONE
[2019-09-04 23:30] VITALS: BP 152/71
--- NOTE | 2019-09-04 23:48 | NUR ---
JANIE NOTIFIED OF CONSULT. ORDERS FOR LOVENOX
[2019-09-05] VITALS (17 sets, daily range): BP systolic 115–172; BP diastolic 69–81
[2019-09-05] MEDS ORDERED: ENOXAPARIN 40 MG/0.4 ML (LOVENOX) SYR ONE (00:20)
[2019-09-05] MEDS ORDERED: ACETAMINOPHEN 325 MG TABLET ONE (00:20)
[2019-09-05] MEDS ORDERED: ALPRAZolam 0.25 MG (XANAX) TAB ONE (00:21)
[2019-09-05] MEDS: ACETAMINOPHEN 325 MG TABLET PO PRN ×2 (00:30→13:55)
[2019-09-05] MEDS ORDERED: ENOXAPARIN 40 MG/0.4 ML (LOVENOX) SYR SC SCH (00:30)
[2019-09-05] MEDS ORDERED: ALPRAZolam 0.25 MG (XANAX) TAB PO PRN (00:30)
[2019-09-05 04:17] LABS: BASOPHILS % (AUTO) 1 % (0-10); EOSINOPHILS # (AUTO) 0.2 10^3/uL (0.0-0.3); EOSINOPHILS % (AUTO) 5 % (0-10); HEMATOCRIT 40 % (35-52); HEMOGLOBIN 12.7 G/DL (11.5-16.0); LYMPHOCYTES # (AUTO) 1.3 X 10^3 (1.0-4.0); LYMPHOCYTES % (AUTO) 32 % (12-44); MEAN CORPUSCULAR HEMOGLOBIN 30 PG (25-34); MEAN CORPUSCULAR HGB CONC 32 G/DL (32-36); MEAN CORPUSCULAR VOLUME 93 FL (80-99); MEAN PLATELET VOLUME 10.3 FL (7.4-10.4); MONOCYTES # (AUTO) 0.4 X 10^3 (0.0-1.0); MONOCYTES % (AUTO) 10 % (0-12); NEUTROPHILS # (AUTO) 2.1 X 10^3 (1.8-7.8); NEUTROPHILS % (AUTO) 53 % (42-75); PLATELET COUNT 242 10^3/uL (130-400); RED CELL DISTRIBUTION WIDTH 14.1 % (10.0-14.5); WHITE BLOOD COUNT 4.1 10^3/uL (4.3-11.0)
[2019-09-05 04:50] LABS: CHLORIDE 109 MMOL/L (98-107); POTASSIUM 3.6 MMOL/L (3.6-5.0); SODIUM 143 MMOL/L (135-145)
[2019-09-05 04:51] LABS: ALANINE AMINOTRANSFERASE 13 U/L (0-55); ALBUMIN 3.6 GM/DL (3.2-4.5); ALKALINE PHOSPHATASE 62 U/L (40-136); BILIRUBIN,TOTAL 0.5 MG/DL (0.1-1.0); BUN/CREATININE RATIO 16; CALCIUM 8.6 MG/DL (8.5-10.1); CARBON DIOXIDE 25 MMOL/L (21-32); CREATININE SERUM 0.67 MG/DL (0.60-1.30); GFR ESTIMATED > 60; GLUCOSE 74 MG/DL (70-105)
--- NOTE | 2019-09-05 07:23 | Diagnostic Imaging Report ---
CHEST 1 VIEW, AP/PA ONLY Indication: Unstable angina Comparison: 12/30/2016 Findings: Stable cardiomegaly. Visualized lungs are clear. Posterior lower lobes are poorly evaluated by portable radiography. No pleural effusion or pneumothorax. Impression: 1. Stable cardiomegaly without acute process by radiography. Dictated by: Dictated on workstation # [id number]
[2019-09-05] MEDS ORDERED: NS IV 1000 ML 1,000 ML IV SCH ×2 (09:00→10:34)
[2019-09-05] MEDS ORDERED: SERTRALINE 50 MG (ZOLOFT) TABLET PO SCH (09:00)
[2019-09-05] MEDS ORDERED: ASPIRIN E.C. 81 MG (ECOTRIN) TAB PO SCH (09:00)
--- NOTE | 2019-09-05 09:02 | Consultation-Cardiology ---
HPI-Cardiology Cardiology Consultation Date of Consultation 09/05/19 Date of Admission Time Seen by Provider: 09:00 Indication: Chest pain HPI 74-year-old lady with history of coronary artery disease non-ST elevation myocardial infarction in 2017, started to have active chest pain around 3 p.m. yesterday, did not respond to nitroglycerin, her medication was , came into the emergency room and received nitroglycerin and aspirin, reported improvement but not full resolution of the chest pain continued to have mild chest discomfort that was persistent. Had elevation in troponin, continue to have active chest pain on my evaluation this morning reported mild chest discomfort, no palpitation, no shortness of breath, no syncope, no dizziness. Home Medications & Allergies Allergies: Coded Allergies: No Known Drug Allergies (Unverified , 10/07/18) Home Medication List Reviewed: Yes TDJ-Tjpzga-Onlhde Hx Patient Social History Marital Status: Employed/Student: retired [employer] Smoke Exposure: No Recent Foreign Travel: No Recent Infectious Disease Expo: No Recent Hopitalizations: No Immunizations Up To Date Date of Influenza Vaccine: Apr 22, 2019 Past Medical History Discussed below Family Medical History Significant Family History: Heart Disease, Cancer Family History: Diabetes mellitus 19 MOTHER FH: breast cancer G8 SISTER FH: pancreatic cancer G8 SISTER Myocardial infarction G8 BROTHER Review of Systems-General Review of Systems Constitutional: no symptoms reported, see HPI EENTM: see HPI, no symptoms reported Respiratory: see HPI; No cough, No dyspnea on exertion, No hemoptysis, No orthopnea, No phlegm, No short of breath, No stridor, No wheezing, No other Cardiovascular: see HPI, chest pain; No edema, No Hx of Intervention, No palpitations, No syncope, No vascular heart diseas, No other Gastrointestinal: no symptoms reported, see HPI Genitourinary: no symptoms reported, see HPI Musculoskeletal: no symptoms reported, see HPI Skin: no symptoms reported, see HPI Psychiatric/Neurological: See HPI, Anxiety Reviewed Test Results Reviewed Test Results Lab Laboratory Tests Test 09/05/19 03:53 Range/Units White Blood Count 4.1 L 4.3-11.0 10^3/uL Red Blood Count 4.27 L 4.35-5.85 10^6/uL Hemoglobin 12.7 11.5-16.0 G/DL Hematocrit 40 35-52 % Mean Corpuscular Volume 93 80-99 FL Mean Corpuscular Hemoglobin 30 25-34 PG Mean Corpuscular Hemoglobin Concent 32 32-36 G/DL Red Cell Distribution Width 14.1 10.0-14.5 % Platelet Count 242 130-400 10^3/uL Mean Platelet Volume 10.3 7.4-10.4 FL Neutrophils (%) (Auto) 53 42-75 % Lymphocytes (%) (Auto) 32 12-44 % Monocytes (%) (Auto) 10 0-12 % Eosinophils (%) (Auto) 5 0-10 % Basophils (%) (Auto) 1 0-10 % Neutrophils # (Auto) 2.1 1.8-7.8 X 10^3 Lymphocytes # (Auto) 1.3 1.0-4.0 X 10^3 Monocytes # (Auto) 0.4 0.0-1.0 X 10^3 Eosinophils # (Auto) 0.2 0.0-0.3 10^3/uL Basophils # (Auto) 0.0 0.0-0.1 10^3/uL Sodium Level 143 135-145 MMOL/L Potassium Level 3.6 3.6-5.0 MMOL/L Chloride Level 109 H 98-107 MMOL/L Carbon Dioxide Level 25 21-32 MMOL/L Anion Gap 9 5-14 MMOL/L Blood Urea Nitrogen 11 7-18 MG/DL Creatinine 0.67 0.60-1.30 MG/DL Estimat Glomerular Filtration Rate > 60 BUN/Creatinine Ratio 16 Glucose Level 74 70-105 MG/DL Calcium Level 8.6 8.5-10.1 MG/DL Corrected Calcium 8.9 8.5-10.1 MG/DL Total Bilirubin 0.5 0.1-1.0 MG/DL Aspartate Amino Transf (AST/SGOT) 25 5-34 U/L Alanine Aminotransferase (ALT/SGPT) 13 0-55 U/L Alkaline Phosphatase 62 40-136 U/L Troponin I 2.221 *H <0.028 NG/ML Total Protein 6.0 L 6.4-8.2 GM/DL Albumin 3.6 3.2-4.5 GM/DL Triglycerides Level 66 <150 MG/DL Cholesterol Level 171 < 200 MG/DL LDL Cholesterol Direct 70 1-129 MG/DL VLDL Cholesterol 13 5-40 MG/DL HDL Cholesterol 86 H 40-60 MG/DL Physical Exam Physical Exam Vital Signs Vital Signs - First Documented 09/04/19 23:30 Temp 36.3 Pulse 69 Resp 18 B/P (MAP) 152/71 (98) Pulse Ox 96 O2 Delivery Room Air Capillary Refill : Height, Weight, BMI Height: 5'3.00" Weight: 105lbs. 6.4oz. 47.791663pr; 18.01 BMI Method:Stated General Appearance: No Apparent Distress, WD/WN Eyes: Bilateral Eye Normal Inspection, Bilateral Eye PERRL, Bilateral Eye EOMI HEENT: PERRL/EOMI, TMs Normal, Normal ENT Inspection, Pharynx Normal, Moist Mucous Membranes Neck: Full Range of Motion, Normal Inspection, Non Tender, Supple, Carotid Bruit Respiratory: Chest Non Tender, Normal Breath Sounds, No Accessory Muscle Use, No Respiratory Distress Cardiovascular: Regular Rate, Rhythm, No Edema, No Gallop, No JVD, No Murmur, Normal Peripheral Pulses Gastrointestinal: Normal Bowel Sounds, No Organomegaly, No Pulsatile Mass, Non Tender, Soft Back: Normal Inspection, No CVA Tenderness, No Vertebral Tenderness Extremity: Normal Capillary Refill, Normal Inspection, Normal Range of Motion, Non Tender, No Calf Tenderness, No Pedal Edema Neurologic/Psychiatric: Alert, Oriented x3, No Motor/Sensory Deficits, Normal Mood/Affect Skin: Normal Color, Warm/Dry Lymphatic: No Adenopathy A/P-Cardiology Admission Diagnosis Non-ST elevation myocardial infarction Coronary artery disease Nonsustained ventricular tachycardia Hyperlipidemia Assessment/Plan Non-ST elevation myocardial infarction, elevated troponin, still having active chest pain, planning to proceed with cardiac catheterization possible PTCA. Next History of chest pain resembling angina, had an acute episode yesterday and still having persistent chest pain. Coronary artery [id number] elevation myocardial infarction on November 26, 2016. Underwent emergent cardiac catheterization revealing small vessel disease in the mid to distal small septal branch that has appeared to be occluded, getting filled by collaterals. Otherwise, small coronary artery disease. LAD tapered down into very small artery at the mid and distal portion. EF 50 percent, planning for cardiac catheterization today Ventricular irritability while the hospital with PVCs, ventricular bigeminy, short episodes of nonsustained ventricular tachycardia. Restart home medication monitor Echocardiogram done in April 2018 showing normal left ventricular size and ejection fraction 55-65 percent, [id number] mitral regurgitation, moderate aortic regurgitation, moderate tricuspid regurgitation, PA pressure 45 mmHg. Continue to monitor Anxiety, maintained on Lexapro, recently started on Xanax. Family history of coronary artery disease, brother from myocardial infa rction in his mid 80s Nonobstructive carotid artery stenosis per carotid duplex done March 2018, I will evaluate carotid ultrasound Hyperlipidemia, lipid profile done in November 2018 showing total cholesterol 195, triglyceride 96, HDL 79, LDL 97, continue to monitor Clinical Quality Measures DVT/VTE Risk/Contraindication: Risk Factor Score Per Nursin RFS Level Per Nursing on Admit: 2=Moderate WILBERT LIMA MD Sep 05, 2019 09:02
--- NOTE | 2019-09-05 09:03 | Cardiac Procedure Note-CS/ASA ---
Pre-Procedure Note Pre-Op Procedure Note H&P Reviewed The H&P was reviewed, patient examined and no changes noted. Date H&P Reviewed: Sep 05, 2019 Time H&P Reviewed: 09:02 Conscious Sedation Pre-Proced Time 09:02 ASA Score 3 For ASA 3 and 4: Consider anesthesia and medical clearance. Also, for patients with a history of failed moderate sedation consider anesthesia. Airway Lungs Heart ASA score ASA 1: a normal healthy patient ASA 2: a patient with a mild systemic disease (mid diabetes, controlled hypertension, obesity x ASA 3: a patient with a severe systemic disease that limits activity (angina, COPD, prior Myocardial infarction) ASA 4: a patient with an incapacitating disease that is a constant threat to life (CHF, renal failure) ASA 5: a moribund patient not expected to survive 24 hrs. (ruptured aneurysm) ASA 6: a declared brain- patient whose organs are being harvested. For emergent operations, add the letter E after the classification Mallampati Classification Grade 3 Sedation Plan Analgesia, Amnesia, Plan communicated to team members, Discussed options with patient/fam, Discussed risks with patient/fam The patient is an appropriate candidate to undergo the planned procedure, sedation, and anesthesia. The patient immediately re-assessed prior to indication. WILBERT LIMA MD Sep 05, 2019 09:03
[2019-09-05] MEDS ORDERED: LIDOCAINE 1% INJ 20 ML 20 ML VIAL ONE (09:23)
[2019-09-05] MEDS ORDERED: MIDAZOLAM 5 MG/5 ML (VERSED) VIAL ONE (09:23)
[2019-09-05] MEDS ORDERED: fentaNYL INJECTION 100 MCG/2 ML AMP ONE (09:24)
[2019-09-05] MEDS ORDERED: NS IV 1000 ML 1,000 ML ONE (09:24)
--- NOTE | 2019-09-05 10:14 | History & Physical-Hospitalist ---
[facility] 09/05/19 1014: History of Present Illness HPI/Chief Complaint CC: chest tightness and pain HPI: Ms. Lama is a 74 year old WF that presents with chest tightness and pain. She stated that the pain began at about 1500 yesterday, she thought it was a episode of 'indigestion' because she previously had eaten and drank coffee relatively fast. After a while she became concerned that it was her heart and took 3 tablets of nitroglycerin within a total span of 15 minutes. She stated that this didn't help the pain, realized that the nitro was and proceeded to call her son to take her to the ER. She denies any radiation of the chest pain, SOB, diaphoresis or tremors. Upon arrival she was given 4 aspirin, 3 more tablet of nitro, and Ativan for anxiety. She rated the pain initally at 7/10 upon arrival, after the medicine was reduced to 5/10, but currently has experienced consistent discomfort. She does have a history of prior HI, but denies HTN, DM, HLP. Source: patient, family Date Seen 09/05/19 Time Seen by a Provider: 10:07 Attending Physician Hanh Isabel MD PCP Maxx Nolan DO Referring Physician Date of Admission Sep 04, 2019 at 23:14 Home Medications & Allergies Home Medications Reviewed patient Home Medication Reconciliation performed by pharmacy medication reconciliations metallurgical or materials technician and/or nursing. Patients Allergies have been reviewed. Allergies Allergies Coded Allergies No Known Drug Allergies (Unverified10/07/18) Past Iaqmqzw-Xhcvnp-Jvsyml Hx Patient Social History Marrital Status: Number of Children: 3 Number of living children: 3 Employed/Student: retired Alcohol Use: Rarely Uses Alcohol Beverage of Choice: Wine Recreational Drug Use: No Smoking Status: Never a Smoker 2nd Hand Smoke Exposure: No Recent Foreign Travel: No Contact w/other who traveled: No Recent Hopitalizations: No Recent Infectious Disease Expo: No Immunizations Up To Date Tetanus Booster (TDap): Unknown Date of Influenza Vaccine: Apr 22, 2019 Seasonal Allergies Seasonal Allergies: Yes Past Medical History Respiratory: Pneumonia (15 years ago ) Currently Using CPAP: No Currently Using BIPAP: No Cardiac: Heart Attack, Hypertension Neurological: Stroke : No Reproductive: No Sexually Transmitted Disease: No HIV/AIDS: No Female Reproductive Disorders: Denies Are Your Blood Sugars Over 250: No Loss of Vision: Bilateral Hearing Impairment: Denies Psychosocial: Anxiety, Depression History of Blood Disorders: No Adverse Reaction to Blood Rosario: No Family History Diabetes mellitus 19 MOTHER FH: breast cancer G8 SISTER FH: pancreatic cancer G8 SISTER Myocardial infarction G8 BROTHER Heart Disease, Cancer Review of Systems Constitutional: No no symptoms reported, No see HPI, No chills, No diaphoresis, No dizziness, No fever, No malaise, No weakness, No weight gain, No weight loss, No other EENTM: No see HPI, No no symptoms reported, No ear discharge, No hearing loss, No ear pain, No blurred vision, No double vision, No eye pain, No tearing, No vision loss, No dental problems, No hoarseness, No mouth pain, No mouth swelling, No epistaxis, No nose congestion, No nose pain, No throat pain, No throat swelling, No other Respiratory: No no symptoms reported, No see HPI, No cough, No dyspnea on e xertion, No hemoptysis, No orthopnea, No phlegm, No short of breath, No stridor, No wheezing, No other Cardiovascular: No no symptoms reported, No see HPI; chest pain; No edema, No Hx of Intervention, No palpitations, No syncope, No vascular heart diseas, No other Gastrointestinal: No RUQ, No LUQ, No RLQ, No LLQ, No no symptoms reported, No see HPI, No abdominal pain, No constipation; diarrhea (when she was sick last month, but has resolved ); No dysphagia, No hematemesis, No heartburn, No jaundice, No loss of appetite, No melena, No nausea, No vomiting, No other Genitourinary: No no symptoms reported, No see HPI, No decreased output, No discharge, No dysuria, No frequency, No hematuria, No hesitancy, No incontinence, No nocturia, No pain, No other : No Control/STD Prophylaxis: None Musculoskeletal: No no symptoms reported, No see HPI, No back pain, No gout, No joint pain, No joint swelling, No muscle pain, No muscle stiffness, No muscle cr amps, No muscle twitching, No muscle weakness, No neck pain, No other Skin: No no symptoms reported, No see HPI, No change in color, No change in hair/nails, No dryness, No hx of skin cancer, No lesions, No lumps, No pruritus, No rash, No other Psychiatric/Neurological: Denies No Symptoms Reported, Denies See HPI; Anxiety; Denies Depressed, Denies Emotional Problems, Denies Headache, Denies Numbness, Denies Paresthesia, Denies Pre-Existing Deficit, Denies Seizure, Denies Tingling, Denies Tremors, Denies Weakness, Denies Other Physical Exam Physical Exam Vital Signs Vital Signs - First Documented 09/04/19 23:30 Temp 36.3 Pulse 69 Resp 18 B/P (MAP) 152/71 (98) Pulse Ox 96 O2 Delivery Room Air Capillary Refill : Height, Weight, BMI Height: 5'3.00" Weight: 105lbs. 6.4oz. 47.755493lw; 18.01 BMI Method:Stated General Appearance: WD/WN, Anxious Eyes: Bilateral Eye Normal Inspection, Bilateral Eye PERRL, Bilateral Eye EOMI HEENT: PERRL/EOMI, Pharynx Normal, Moist Mucous Membranes Neck: Full Range of Motion, Normal Inspection, Non Tender, Supple Respiratory: Chest Non Tender, Lungs Clear, Normal Breath Sounds, No Accessory Muscle Use, No Respiratory Distress Cardiovascular: Regular Rate, Rhythm, No Edema, No Gallop, No JVD, No Murmur, Normal Peripheral Pulses Gastrointestinal: Normal Bowel Sounds, No Organomegaly, No Pulsatile Mass, Non Tender, Soft Extremity: Normal Capillary Refill, Normal Inspection, Normal Range of Motion, Non Tender, No Calf Tenderness, No Pedal Edema Neurologic/Psychiatric: Alert, Oriented x3, No Motor/Sensory Deficits, Normal Mood/Affect, 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 Imaging: Reviewed Imaging Films, Reviewed Imaging Report Assessment/Plan Admission Diagnosis Unstable angina + NSTEMI Admission Status: Observation Assessment and Plan NSTEMI: - Caridology is consulted and doing heart catheter - Possible stent - Nitro PRN, O2 if SPO2 < 90, ASA, Rate control - Metropolol Unstable Angina: - Nitroglycerin PRN Anxiety: - Ativan PRN - Home dose of Sertraline 12.5 mg PO QD DVT Prophylaxis: - SCDs - ASA Clinical Quality Measures DVT/VTE Risk/Contraindication: Risk Factor Score Per Nursin RFS Level Per Nursing on Admit: 2=Moderate Copy Copies To 1: MAXX NOLAN KATELYN M MD 09/05/19 1214: Past Hfmjuus-Hprtuk-Yjnqtx Hx Past Med/Social Hx: Reviewed Nursing Past Med/Soc Hx Family History Reviewed Nursing Family Hx Diabetes mellitus 19 MOTHER FH: breast cancer G8 SISTER FH: pancreatic cancer G8 SISTER Myocardial infarction G8 BROTHER Assessment/Plan Assessment and Plan Pt was admitted due to chest pain and elevated troponin. This trended up while here and she was taken to the slabbing machine operator for elevation with concerns for NSTEMI and unstable angina. Cath revealed nonobstructive disease and cardiology recommended medical management. She is to be discharged home with cardiology follow up. Return precautions were discussed with the patient and family. All questions answered and they were agreeable with plan. Diagnosis/Problems Diagnosis/Problems (1) Chest pain Qualifiers: Chest pain type: unspecified Qualified Codes: R07.9 - Chest pain, unspecified Copy Copies To 1: MAXX NOLAN DO Supervisory-Addendum Brief Verification & Attestation Participated in pt care: history, MDM, physical Personally performed: exam, history, MDM, supervision of care Care discussed with: Medical Student Procedures: n/a Results interpretation: Verified all documentation Verification and Attestation of Medical Student E/M Service A medical student performed and documented this service in my presence. I reviewed and verified all information documented by the medical student and made modifications to such information, when appropriate. I personally performed the physical exam and medical decision making. Liz Guidry, Sep 07, 2019,20:06 [facility] Sep 05, 2019 10:14 LIZ GUIDRY MD Sep 05, 2019 12:14
--- NOTE | 2019-09-05 10:38 | Discharge Inst-Post CATH ---
Discharge Inst-CATH/EP Problems Reviewed?: Yes Post Cardiac Cath/EP D/C Inst Follow Up/Plan Appointment with Dr. Lundberg's office in 4 weeks <b>CARDIAC CATH/EP PROCEDURE DISCHARGE INSTRUCTIONS</b> ACTIVITY * Go Home directly and rest. * Limit activity of the leg (or wrist if it was used) for 7 days including aerobics, swimming, jogging, bicycling, etc. * Restrict stair-climbing for 7 days if possible, if not, climb up with your non-cath leg, then bring together on the same step. * Avoid lifting, pushing, pulling or excessive movement of the affected extremity for 7 days. * Customary sexual activity may be resumed after 2 days-use caution not to use a position that strains or causes pain to the affected extremity. * No driving for 24 hours. * NO SMOKING. * Avoid straining for bowel movements for 7 days. * Gentle walking on level ground is allowed. * Returning to work will depend on the type of procedure and the results. Your doctor will discuss this with you. CALL YOUR DOCTOR FOR ANY OF THE FOLLOWING: *If bleeding from the puncture site occurs- Apply gentle pressure to site with clean cloth and call your doctor or EMS. * If a knot or lump forms under the skin, increases in size, or causes pain. * If bruising appears to be worsening or moving further down your leg instead of disappearing. * Temperature above 101 F. CARE OF YOUR GROIN INCISION; * Bruising or purple discoloration of the skin near the puncture site is common. * You may shower only, no bathtub bathing for 5 days. Be careful to avoid slipping as your leg may feel stiff. * If a closure device was used on your femoral artery, please see the attached guide regarding care of the device and your leg. * Leave dressing on FOR 24 hours. CARE OF YOUR WRIST INCISION; * Bruising or purple discoloration of the skin near the puncture site is common. * You may shower. * DO NOT submerge wrist. * Leave dressing on FOR 24 hours. WILBERT LUNDBERG MD Sep 05, 2019 10:38
[2019-09-05] MEDS ORDERED: PATIENT MAY USE OWN MEDS, ALL PO SCH (10:45)
--- NOTE | 2019-09-05 11:00 | Cardiac Cath Report ---
Cardiac Cath Report Physician (s)/Contact Lens Inspector (s) Physician WILBERT LIMA MD Pre-Procedure Diagnosis Pre-Procedure Diagnosis: Non-ST elevation myocardial infarction Post-Procedure Note Procedure Start Date: Sep 05, 2019 Name of Procedure: Left heart catheterization Left ventriculogram Aortic arch angiogram Findings/Procedure Note PROCEDURE NOTE: 74-year-old lady with history of coronary artery disease, small vessel disease, admitted with acute chest pain and elevated troponin, no acute EKG changes, continue to have waxing and waning chest pain, decided to proceed with cardiac catheterization possible PTCA. After explaining the procedure to the patient, all pros and cons were explained, all questions were answered. The patient signed the consent and then she was placed on the cardiac catheterization laboratory. Groin was prepped SL fashion local anesthesia was used. Sheath placed in the right femoral artery. Ajith right and left catheter were used to access the coronary system. Pigtail was used to access the left ventricular cavity. Left ventriculogram was done Aortic arch angiogram was done At the end of the procedure the sheath was removed. Closure device was used FINDINGS: Hemodynamics LV 163/17, end-diastolic pressure of 17 Aorta 145/70, mean of 106 ANATOMY: Left Main is very short with no obstructive disease Left Anterior Descending is moderate in size, after the second diagonal branch it tapered down into a very small artery, hairline artery with myocardial bridging, small vessel disease nonobstructive disease Left Circumflex is moderate in size with no obstructive disease Right Coronory Artery is dominant artery with no obstructive disease LV Gram was done showing normal left ventricular size, ejection fraction 50 percent Aorta evaluation done with aortic arch angiogram showing normal aortic arch, no dissection or aneurysm, normal origin of the innominate artery, left carotid and left subclavian arteries CONCLUSION: 1. Small vessel disease, LAD tapered down into very small artery with myocardial bridging, nonobstructive disease 2. Normal left ventricular size, systolic function is in the lower normal limit estimated ejection fraction 50 percent 3. Normal aortic arch and great vessels of the neck DISCUSSION AND RECOMMENDATION: Medical therapy is recommended no intervention is needed Anesthesia Type: Conscious Sedation Estimated blood loss (mL): 25 ml Contrast Amount: 44 ml Total Radiation Dose: 199 mGy Post-Procedure Diagnosis Post-operative diagnosis: Non ST elevation myocardial infarction Coronary artery disease Hypertension Hyperlipidemia WILBERT LIMA MD Sep 05, 2019 11:00
--- NOTE | 2019-09-05 14:50 | NUR ---
THIS NURSE EDUCATED PT ON DISCHARGE INSTRUCTIONS AND TOOK IV OUT. PT STATED UNDERSTANDING. PT TAKEN DOWN VIA WHEELCHAIR.
== END 2019-09-05 15:10 | disposition home or self-care (01) | DRG 282 ==
LOC: CSD 23:14
PROVIDERS: ADMIT Internal Medicine; ATTEND Internal Medicine
PROC: 4A023N7 Measurement of Cardiac Sampling and Pressure, Left Heart, Percutaneous Approach (ICD-10-PCS; principal; 2019-09-05)
PROC: B2111ZZ Fluoroscopy of Multiple Coronary Arteries using Low Osmolar Contrast (ICD-10-PCS; 2019-09-05)
PROC: B2151ZZ Fluoroscopy of Left Heart using Low Osmolar Contrast (ICD-10-PCS; 2019-09-05)
PROC: B3101ZZ Fluoroscopy of Thoracic Aorta using Low Osmolar Contrast (ICD-10-PCS; 2019-09-05)
DX: I21.4 Non-ST elevation (NSTEMI) myocardial infarction (principal); I10 Essential (primary) hypertension; H54.3 Unqualified visual loss, both eyes; F41.9 Anxiety disorder, unspecified; F32.9 Major depressive disorder, single episode, unspecified; E78.5 Hyperlipidemia, unspecified; I25.10 Atherosclerotic heart disease of native coronary artery without angina pectoris; I25.2 Old myocardial infarction
CPT/HCPCS: 36221; 36415; 71045; 80053; 80061; 84484; 85025; 85610; 85730; 93005; 93458

== ENCOUNTER 2020-06-20 12:11 | Emergency (ER) | payer MEDICARE, OTHER ==
[~2020-06-20] VITALS: Ht 180.3 cm; Wt 45.4 kg
[~2020-06-20 12:11] MED LIST changes: +ASPI-1238 PO; -ASPI-983 PO
[2020-06-20] MEDS ORDERED: ASPIRIN 81 MG CHEW (CHILDREN'S ASA) PO ONE (12:15)
--- NOTE | 2020-06-20 12:18 | ED Chest Pain ---
General Chief Complaint: Chest Pain Stated Complaint: CP Source: patient Exam Limitations: no limitations History of Present Illness Date Seen by Provider: Jun 20, 2020 Time Seen by Provider: 12:17 Initial Comments To ER with left upper chest pain that began this morning around 8 AM while she was reading her mail. She had nausea but no shortness of breath. She has a history of coronary artery disease. She took her baby aspirin which she does every morning. She also took 3 sublingual nitroglycerin with only modest improvement in her chest pain. She currently rates the pain at 6 out of 10. Timing/Duration: 4-6 hours Severity/Quality: moderate Location: central Radiation: no radiation ASA po CLAIM REPRESENTATIVE: No NTG SL CLAIM REPRESENTATIVE: No Associated Symptoms: nausea/vomiting; No shortness of breath Allergies and Home Medications Allergies Coded Allergies: No Known Drug Allergies (Unverified , 10/07/18) Home Medications Alprazolam 0.25 Mg Tablet, 0.25 MG PO Q8H PRN for ANXIETY Prescribed by: DIVYA OVALLES on 12/30/16 1805 Aspirin 81 Mg Tablet.dr, 81 MG PO DAILY Prescribed by: WILBERT LUNDBERG on 11/26/16 1024 Cetirizine HCl 10 Mg Tablet, 10 MG PO DAILY, (Reported) Gentamicin Sulfate 5 Ml Drops, 3 DROPS OP BID Prescribed by: MILAN ARORA on 10/10/18 0939 L. Rhamnosus GG/Inulin 1 Each Cap.sprink, 1 EACH PO DAILY, (Reported) Metoprolol Tartrate 25 Mg Tablet, 25 MG PO BID, (Reported) Multivitamin 1 Each Tablet, 1 EACH PO BID, (Reported) Nitroglycerin 0.4 Mg Tab.subl, 0.4 MG SL Q5M PRN for CHEST PAIN Prescribed by: WILBERT LUNDBERG on 11/26/16 1028 [place] 3 Polyunsat Fatty Acids 1,000 Mg Cap, 1,000 MG PO DAILY, (Reported) Psyllium Husk/Ca Carbonate 1 Each Capsule, 1 EACH PO DAILY, (Reported) Ranolazine 500 Mg Tab.er.12h, 500 MG PO BID, (Reported) Sertraline HCl 25 Mg Tablet, 12.5 MG PO DAILY, (Reported) Patient Home Medication List Home Medication List Reviewed: Yes Review of Systems Review of Systems Constitutional: see HPI EENTM: No Symptoms Reported Respiratory: No Symptoms Reported Cardiovascular: No Symptoms Reported Gastrointestinal: See HPI, Abdominal Pain Genitourinary: No Symptoms Reported Musculoskeletal: no symptoms reported Skin: no symptoms reported Psychiatric/Neurological: No Symptoms Reported Endocrine: No Symptoms Reported Hematologic/Lymphatic: No Symptoms Reported Past Pkqtsfk-Vlfwmz-Ronexh Hx Patient Social History Alcohol Beverage of Choice: Wine 2nd Hand Smoke Exposure: No Recent Foreign Travel: No Contact w/Someone Who Travel: No Recent Hopitalizations: No Immunizations Up To Date Tetanus Booster (TDap): Unknown Date of Influenza Vaccine: Apr 22, 2019 Seasonal Allergies Seasonal Allergies: Yes Past Medical History Surgeries: No Respiratory: No Currently Using CPAP: No Currently Using BIPAP: No Cardiac: Yes Heart Attack, Hypertension Neurological: No Stroke Reproductive Disorders: No Female Reproductive Disorders: Denies Sexually Transmitted Disease: No HIV/AIDS: No Genitourinary: No Gastrointestinal: No Musculoskeletal: No Endocrine: No HEENT: Yes (GLASSES) Loss of Vision: Bilateral Hearing Impairment: Denies Cancer: No Psychosocial: Yes Anxiety, Depression Integumentary: No Blood Disorders: No Adverse Reaction/Blood Tranf: No Family Medical History Diabetes mellitus 19 MOTHER FH: breast cancer G8 SISTER FH: pancreatic cancer G8 SISTER Myocardial infarction G8 BROTHER Heart Disease, Cancer Physical Exam Vital Signs Vital Signs - First Documented 06/20/20 12:12 Temp 36.2 Pulse 64 Resp 17 B/P (MAP) 141/82 (101) Pulse Ox 100 O2 Delivery Room Air Capillary Refill : Height, Weight, BMI Height: 5'3.00" Weight: 105lbs. 6.4oz. 47.985056sw; 18.01 BMI Method:Stated General Appearance: No Apparent Distress, WD/WN Neck: Full Range of Motion, Normal Inspection Respiratory: Chest Non Tender, Lungs Clear, Normal Breath Sounds, No Accessory Muscle Use, No Respiratory Distress Cardiovascular: Regular Rate, Rhythm, Normal Peripheral Pulses Gastrointestinal: Non Tender, Soft Extremity: Normal Capillary Refill, Normal Inspection Neurologic/Psychiatric: Alert, Oriented x3 Skin: Normal Color, Warm/Dry Progress/Results/Core Measures Results/Orders Lab Results Laboratory Tests Test 06/20/20 12:13 06/20/20 12:21 Range/Units B-Type Natriuretic Peptide 200.5 H <100.0 PG/ML White Blood Count 5.2 4.3-11.0 10^3/uL Red Blood Count 4.20 3.80-5.11 10^6/uL Hemoglobin 12.6 11.5-16.0 g/dL Hematocrit 41 35-52 % Mean Corpuscular Volume 97 80-99 fL Mean Corpuscular Hemoglobin 30 25-34 pg Mean Corpuscular Hemoglobin Concent 31 L 32-36 g/dL Red Cell Distribution Width 13.4 10.0-14.5 % Platelet Count 230 130-400 10^3/uL Mean Platelet Volume 10.4 9.0-12.2 fL Immature Granulocyte % (Auto) 0 % Neutrophils (%) (Auto) 66 42-75 % Lymphocytes (%) (Auto) 24 12-44 % Monocytes (%) (Auto) 7 0-12 % Eosinophils (%) (Auto) 2 0-10 % Basophils (%) (Auto) 1 0-10 % Neutrophils # (Auto) 3.4 1.8-7.8 10^3/uL Lymphocytes # (Auto) 1.3 1.0-4.0 10^3/uL Monocytes # (Auto) 0.4 0.0-1.0 10^3/uL Eosinophils # (Auto) 0.1 0.0-0.3 10^3/uL Basophils # (Auto) 0.0 0.0-0.1 10^3/uL Immature Granulocyte # (Auto) 0.0 0.0-0.1 10^3/uL Prothrombin Time 13.4 12.2-14.7 SEC INR Comment 1.0 0.8-1.4 Activated Partial Thromboplast Time 29 24-35 SEC Sodium Level 140 135-145 MMOL/L Potassium Level 3.7 3.6-5.0 MMOL/L Chloride Level 103 98-107 MMOL/L Carbon Dioxide Level 26 21-32 MMOL/L Anion Gap 11 5-14 MMOL/L Blood Urea Nitrogen 19 H 7-18 MG/DL Creatinine 0.78 0.60-1.30 MG/DL Estimat Glomerular Filtration Rate > 60 BUN/Creatinine Ratio 24 Glucose Level 95 70-105 MG/DL Calcium Level 8.6 8.5-10.1 MG/DL Corrected Calcium 8.6 8.5-10.1 MG/DL Magnesium Level 1.9 1.6-2.4 MG/DL Total Bilirubin 0.5 0.1-1.0 MG/DL Aspartate Amino Transf (AST/SGOT) 23 5-34 U/L Alanine Aminotransferase (ALT/SGPT) 22 0-55 U/L Alkaline Phosphatase 66 40-136 U/L Myoglobin 44.0 10.0-92.0 NG/ML Troponin I < 0.028 <0.028 NG/ML Total Protein 6.6 6.4-8.2 GM/DL Albumin 4.0 3.2-4.5 GM/DL My Orders Orders - LUDWIN GARCIA YARDAGE TUFTING MACHINE OPERATOR Cbc With Automated Diff (06/20/20 12:13) Magnesium (06/20/20 12:13) Chest 1 View, Ap/Pa Only (06/20/20 12:13) Ekg Tracing (06/20/20 12:13) Comprehensive Metabolic Panel (06/20/20 12:13) Myoglobin Serum (06/20/20 12:13) Protime With Inr (06/20/20 12:13) Partial Thromboplastin Time (06/20/20 12:13) O2 (06/20/20 12:13) Monitor-Rhythm Ecg Trace Only (06/20/20 12:13) Lipid Panel (06/21/20 06:00) Ed Iv/Invasive Line Start (06/20/20 12:13) BNP (06/20/20 12:13) Aspirin Chewable Tablet (Baby Aspirin Ch (06/20/20 12:15) Fentanyl Injection (Sublimaze Injection (06/20/20 12:30) Troponin I (06/20/20 12:21) Medications Given in ED Current Medications Medications Dose Ordered Sig/Khoi Route Start Time Stop Time Status Last Admin Dose Admin Aspirin 324 mg ONCE ONCE PO 06/20/20 12:15 06/20/20 12:16 DC 06/20/20 12:32 324 MG Fentanyl Citrate 25 mcg ONCE PRN IVP 06/20/20 12:30 06/20/20 12:33 25 MCG Vital Signs/I&O 06/20/20 12:12 Temp 36.2 Pulse 64 Resp 17 B/P (MAP) 141/82 (101) Pulse Ox 100 O2 Delivery Room Air Departure Impression Primary Impression: Chest pain Qualified Codes: R07.9 - Chest pain, unspecified Disposition: HOME, SELF-CARE Condition: Stable Departure-Patient Inst. Decision time for Depature: 13:39 Referrals: TELLY LEONARD DO (PCP/Family) Primary Care Physician Patient Instructions: Chest Pain Add. Discharge Instructions: Call Dr Lundberg tomorrow to make an appointment for follow up. Return to ER for any concerns All discharge instructions reviewed with patient and/or family. Voiced understanding. Copy Copies To 1: WILBERT LUNDBERG MD, PETER J APRN Jun 20, 2020 12:17
[2020-06-20 12:30] LABS: BASOPHILS % (AUTO) 1 % (0-10); EOSINOPHILS # (AUTO) 0.1 10^3/uL (0.0-0.3); EOSINOPHILS % (AUTO) 2 % (0-10); HEMATOCRIT 41 % (35-52); HEMOGLOBIN 12.6 g/dL (11.5-16.0); LYMPHOCYTES # (AUTO) 1.3 10^3/uL (1.0-4.0); LYMPHOCYTES % (AUTO) 24 % (12-44); MEAN CORPUSCULAR HEMOGLOBIN 30 pg (25-34); MEAN CORPUSCULAR HGB CONC 31 g/dL (32-36); MEAN CORPUSCULAR VOLUME 97 fL (80-99); MEAN PLATELET VOLUME 10.4 fL (9.0-12.2); MONOCYTES # (AUTO) 0.4 10^3/uL (0.0-1.0); MONOCYTES % (AUTO) 7 % (0-12); NEUTROPHILS # (AUTO) 3.4 10^3/uL (1.8-7.8); NEUTROPHILS % (AUTO) 66 % (42-75); PLATELET COUNT 230 10^3/uL (130-400); WHITE BLOOD COUNT 5.2 10^3/uL (4.3-11.0)
[2020-06-20] MEDS ORDERED: fentaNYL INJECTION 100 MCG/2 ML AMP IVP PRN (12:30)
[2020-06-20 12:38] LABS: CHLORIDE 103 MMOL/L (98-107); POTASSIUM 3.7 MMOL/L (3.6-5.0); SODIUM 140 MMOL/L (135-145)
[2020-06-20 12:39] LABS: CALCIUM 8.6 MG/DL (8.5-10.1)
[2020-06-20 12:40] LABS: GLUCOSE 95 MG/DL (70-105); TOTAL PROTEIN 6.6 GM/DL (6.4-8.2)
[2020-06-20 12:41] LABS: CARBON DIOXIDE 26 MMOL/L (21-32)
[2020-06-20 12:42] LABS: BILIRUBIN,TOTAL 0.5 MG/DL (0.1-1.0)
[2020-06-20 12:44] LABS: ALKALINE PHOSPHATASE 66 U/L (40-136); CREATININE SERUM 0.78 MG/DL (0.60-1.30); GFR ESTIMATED > 60; PROTHROMBIN TIME PATIENT 13.4 SEC (12.2-14.7)
[2020-06-20 12:45] LABS: BUN/CREATININE RATIO 24
[2020-06-20 12:47] LABS: ALANINE AMINOTRANSFERASE 22 U/L (0-55); MAGNESIUM 1.9 MG/DL (1.6-2.4)
--- NOTE | 2020-06-20 13:10 | Diagnostic Imaging Report ---
INDICATION: Chest pain. COMPARISON: 09/05/2019 FINDINGS: There is cardiomegaly. The lungs are clear. There is no pleural effusion or pneumothorax. The mediastinum is unremarkable. IMPRESSION: 1. No acute cardiopulmonary abnormality. 2. Cardiomegaly. Dictated by: Dictated on workstation # [id number]
--- NOTE | 2020-06-20 13:40 | NUR ---
Son Damian was called a this time and updated. Damian gave sister (Criss's) number to call after updating him. Attempted to call, but go voicemail. WIll call back in a few minutes.
--- NOTE | 2020-06-20 13:43 | NUR ---
Spoke to daughter Criss at this time and gave her an update.
[2020-06-20 15:15] VITALS: BP 139/71
== END 2020-06-20 15:15 | disposition home or self-care (01) ==
LOC: EDUNIT# 12:11 → ER 12:12
DX: R07.9 Chest pain, unspecified (principal); I25.2 Old myocardial infarction; F41.9 Anxiety disorder, unspecified; F32.9 Major depressive disorder, single episode, unspecified; I10 Essential (primary) hypertension; Z82.49 Family history of ischemic heart disease and other diseases of the circulatory system; Z83.3 Family history of diabetes mellitus; Z80.3 Family history of malignant neoplasm of breast; Z80.0 Family history of malignant neoplasm of digestive organs; Z79.82 Long term (current) use of aspirin
CPT/HCPCS: 36415; 71045; 80053; 83735; 83874; 83880; 84484; 85025; 85610; 85730; 93005; 93041

== ENCOUNTER → 2021-04-29 | Outpatient (CLI) | payer MEDICARE, OTHER ==
[~2021-04-29] MED LIST changes: +SERT-412 PO; -SERT25TA5 PO
== END ==
LOC: CARD 09:00
PROVIDERS: ATTEND Physician Assistant
DX: I08.3 Combined rheumatic disorders of mitral, aortic and tricuspid valves (principal); I11.9 Hypertensive heart disease without heart failure
CPT/HCPCS: 93306

== ENCOUNTER → 2022-05-18 | Outpatient (CLI) | payer MEDICARE, OTHER | LOC: CARD 08:40 | PROVIDERS: ATTEND Internal Medicine Cardiovascular Disease | DX: I08.3 Combined rheumatic disorders of mitral, aortic and tricuspid valves (principal); I25.10 Atherosclerotic heart disease of native coronary artery without angina pectoris; I11.9 Hypertensive heart disease without heart failure | CPT/HCPCS: 93306 ==

== ENCOUNTER → 2022-06-05 | Outpatient (CLI) | payer MEDICARE, OTHER ==
[~2022-06-05] MED LIST changes: +CATHETER FLUSH 10 ML SYR IVP PRN; +REGADENOSON 0.4 MG/5 ML SYR (LEXISCAN) IV ONE
[2022-06-05 08:02] VITALS: BP 155/80
--- NOTE | 2022-06-05 10:31 | Cardiology Stress Test Report ---
Stress Test Report Date of Procedure/Referring: Date of Procedure: Jun 05, 2022 PCP Maxx Nolan DO Admitting Physician Admitting Physician: Attending Physician: Diane Lundberg MD Baseline Heart Rate: 62 Baseline Blood Pressure: Blood Pressure Systolic: 155 Blood Pressure Diastolic: 80 Baseline Vitals Vital Signs Date Time Temp Pulse Resp B/P (MAP) Pulse Ox O2 Delivery O2 Flow Rate FiO2 06/05/22 08:02 62 155/80 (105) 99 Baseline EKG: Baseline EKG: NSR Summary After explaining the procedure to the patient, she signed a consent and then brought to the stress nuclear laboratory. Patient received 0.4 mg Lexiscan for stress test, ECG, heart rate and blood pressure were monitored continuously. Resting and stress dose of radio tracer were injected, imaging was acquired and reviewed in short axis, horizontal long axis and vertical long axis views. TID: 0.99 SSS: 7 SDS: 5 EF: 53 1. Patient tolerated Lexiscan well 2. Extracardiac attenuation affecting the quality of the images, overall there is no significant ischemia or infarction on SPECT images 3. Normal left ventricular size with normal contractility, ejection fraction 53% Copy Copies To 1: MAXX NOLAN BASHAR J MD Jun 05, 2022 10:31
== END ==
LOC: CARD 07:00
PROVIDERS: ATTEND Internal Medicine Cardiovascular Disease
DX: I25.10 Atherosclerotic heart disease of native coronary artery without angina pectoris (principal); I10 Essential (primary) hypertension; R07.2 Precordial pain
CPT/HCPCS: 78452; 93017; A9502